=== PATIENT | female | born 1985 | race Caucasian/White ===

== ENCOUNTER → 2017-04-04 11:10 | Outpatient (CLI) | payer OTHER, SELFPAY ==
--- NOTE | 2017-04-04 11:10 | US_ITS ---
STUDY: SECOND AND THIRD TRIMESTER OBSTETRICAL ULTRASOUND REASON FOR EXAM: Female, 31 years old. Routine survey. LMP: November 15, 2016. TECHNIQUE: Transabdominal PRIOR ULTRASOUND: None. FINDINGS: There is a single intrauterine fetus. The fetus is in a breech presentation. There is demonstrated cardiac activity with a heart rate of 144 bpm. There is a normal amniotic fluid volume. The largest amniotic fluid pocket measures 4.1 cm x 3.7 cm. The amniotic fluid index (STACEY) is 12.5 cm. The placenta is posterior in location and is not low lying. There are Grade 0 placental changes. The cervix measures 5.6 cm in length. The bilateral adnexal regions are normal. BIOMETRY: BPD: 4.57 cm: 19 weeks, 6 days HC: 17.85 cm: 20 weeks, 3 days AC: 15.31 cm: 20 weeks, 4 days FL: 3.5 cm: 21 weeks, 1 days CI: 73% FL/BPD: 77% FL/HC: FL/AC: 23% HC/AC: 1.17 age by current US: 20 weeks, 4 days. PRASHANT by current US: August 18, 2017. Estimated weight: 370 grams, +/- 54 grams, 82 %. Age by LMP: 20 weeks, 0 days. PRASHANT by LMP: August 22, 2017. ANATOMY: Gender: Male Cranium: Normal lateral ventricles. Normal choroid plexus. Normal cerebellum. Normal cisterna magna. Normal face, nose and lips. Chest: Normal 4-chamber heart. Abdomen/Pelvis: Normal diaphragm. Normal stomach. Normal abdominal wall. Normal cord insertion. Normal 3 vessel cord. Normal kidneys. Normal bladder. Spine: Normal cervical spine. Normal thoracic spine. Normal lumbar spine. Normal sacrum. Extremities: Normal bilateral upper extremities. Normal bilateral lower extremities. US/OB Anatomy Scan IMPRESSION: Single live intrauterine gestation with a mean gestational age of 20 weeks and 4 days. Electronically Signed: Varinder Batista MD at 12:47 EST Tel [phone], Service support ,
== END ==
PROVIDERS: Family Provider Family Medicine; PCP Family Medicine; Visit Provider Obstetrics & Gynecology
DX: Z34.90 Encounter for supervision of normal pregnancy, unspecified, unspecified trimester (principal)
CPT/HCPCS: 76805

== ENCOUNTER → 2017-06-08 08:48 | Outpatient (CLI) | payer OTHER, SELFPAY ==
[2017-06-08 10:20] LABS: Absolute Lymphocyte Count 1.16 X10^3/ul (0.83-4.51); Absolute Neutrophil Count 4.2 X10^3/uL (2.0-7.7); Basophil# 0.01 X10^3/uL; Basophil% 0.2 % (0-1); Eosinophil# 0.08 X10^3/uL; Eosinophils% 1.4 % (0-5); Hematocrit 36.8 % (37-47); Hemoglobin 11.9 g/dl (12.0-15.0); Lymphocyte # 1.16 X10^3/ul (4.0); Lymphocyte % 20.4 % (19-41); Mean Corp Hgb Conc 32.3 g/gl (32-36); Mean Corpuscular Hgb 29.3 pg (27.0-32.0); Mean Corpuscular Volume 90.6 fL (81-99); Mean Platelet Vol. 9.9 fl (6.2-12.0); Monocyte# 0.26 X10^3/uL; Monocyte% 4.6 % (0-10); Neutrophil # 4.17 X10^3/uL (2.7-7.7); Neutrophil % 73.4 % (47-70); Platelet Count 208 K/mm3 (150-450); RBC Distribution Width CV 13.3 % (11.6-14.6); RBC Distribution Width SD 43.4 fl (35.1-43.9); Red Blood Count 4.06 M/mm3 (4.2-5.4); White Blood Count 5.7 K/mm3 (4.4-11.0)
[2017-06-08 10:22] LABS: POSITIVE COUNT NO; POSITIVE DIFFERENTIAL NO; POSITIVE MORPHOLOGY NO
[2017-06-08 11:06] LABS: Glucose Challenge Gest 1H 50g 94 mg/dL (70-140)
== END ==
PROVIDERS: Family Provider Family Medicine; PCP Family Medicine; Visit Provider Obstetrics & Gynecology
DX: Z34.81 Encounter for supervision of other normal pregnancy, first trimester (principal)
CPT/HCPCS: 36415; 82950; 85025

== ENCOUNTER → 2017-07-08 14:46 | Outpatient (CLI) | payer OTHER, SELFPAY ==
--- NOTE | 2017-07-08 15:00 | US_ITS ---
STUDY: SECOND AND THIRD TRIMESTER OBSTETRICAL ULTRASOUND - LIMITED REASON FOR EXAM: Female, 31 years old. , assessment LMP: November 15, 2016 PRIOR ULTRASOUND: April 04, 2017 TECHNIQUE: Transabdominal evaluation of the pelvis was performed using real-time ultrasound. FINDINGS: There is a single intrauterine fetus. The fetus is in a cephalic presentation. There is demonstrated cardiac activity with a heart rate of 158 bpm. There is a normal amniotic fluid volume. The largest amniotic fluid pocket measures 4.6 cm. The amniotic fluid index (STACEY) is 15.06 cm. The placenta is posterior in location and is not low lying. There are Grade 1 placental changes. The cervix measures 4.2 cm in length. BIOMETRY: BPD: 8.11 cm: 32 weeks, 5 days HC: 30.03 cm: 33 weeks, 3 days AC: 30.21 cm: 34 weeks, 2 days FL: 6.61 cm: 34 weeks, 1 days Age by LMP: 33 weeks, 4 days. PRASHANT by LMP: August 22, 2017. age by prior US: weeks, days. PRASHANT by prior US: August 18, 2017. age by current US: 33 weeks, 5 days. PRASHANT by current US: August 21, 2017. Estimated weight: 2299 grams, +/- 336 grams, 52 percentile. US/OB Limited With Biometrics IMPRESSION: There is a viable intrauterine with estimated gestational age of 33 weeks 5 days by the current ultrasound. Measurements are given above. Electronically Signed: Roya Best MD at 19:29 EDT Tel Direct: [phone], Service support ,
== END ==
PROVIDERS: Family Provider Family Medicine; PCP Family Medicine; Visit Provider Obstetrics & Gynecology
DX: O26.843 Uterine size-date discrepancy, third trimester (principal); Z3A.00 Weeks of gestation of pregnancy not specified
CPT/HCPCS: 76816

== ENCOUNTER → 2017-07-28 17:11 | Outpatient (CLI) | payer OTHER, SELFPAY ==
[2017-07-28 18:44] LABS: Group B Strep DNA By PCR Negative (Negative); Internal Control PASS; Probe Check PASS; Specimen Processing Control PASS
== END ==
PROVIDERS: Family Provider Family Medicine; PCP Family Medicine; Visit Provider Obstetrics & Gynecology
DX: Z34.81 Encounter for supervision of other normal pregnancy, first trimester (principal)
CPT/HCPCS: 87081; 87653

== ENCOUNTER 2017-08-19 18:50 | Inpatient (IN) | payer OTHER, SELFPAY ==
[2017-08-19 18:46] VITALS: BMI 40.0
[2017-08-19 19:55] LABS: Hematocrit 38.6 % (37-47); Hemoglobin 12.7 g/dl (12.0-15.0); Mean Corp Hgb Conc 32.9 g/gl (32-36); Mean Corpuscular Volume 88.1 fL (81-99); Mean Platelet Vol. 10.4 fl (6.2-12.0); Platelet Count 174 K/mm3 (150-450); RBC Distribution Width CV 13.7 % (11.6-14.6); RBC Distribution Width SD 44.5 fl (35.1-43.9); Red Blood Count 4.38 M/mm3 (4.2-5.4); White Blood Count 6.3 K/mm3 (4.4-11.0)
[2017-08-19 19:57] LABS: Scan Indicated on CBC? Y/N NO
[2017-08-19 20:04] LABS: International Normalized Ratio 0.9; Prothrombin Time (Protime)PT. 12.3 SECONDS (11.7-14.9)
[2017-08-19 20:20] LABS: AST(SGOT) 14 U/L (15-37); Alanine Aminotransfer ALT/SGPT 18 U/L (13-56); Creatinine, Serum 0.61 mg/dL (0.55-1.02); EST Glomerular Filtration Rate 122 mL/min (>60); Est Glom Filt Rate - Afr Amer 148 mL/min (>60); Estimated Creatinine Clearance 140.93 ml/min
[2017-08-19] MEDS: Oxytocin 30 units/NS 500 ml 30 UNITS/500 ML IV.SOLN IV (21:12)
[2017-08-19 21:30] LABS: Protein, Urine (Random) 8.4 mg/dL (<11.9); Protein:Creat Ratio 138 mg/g CRE (0-200)
[2017-08-19] MEDS: Lactated Ringers 1,000 ML 50 ML IV (21:30)
[2017-08-19] MEDS: fentaNYL-bupivacaine (epidural) 100 ML BAG EPIDURAL (21:53)
--- NOTE | 2017-08-19 22:22 | HP.PCM_ITS ---
- Problem List (1) Gestational hypertension affecting second Status: Acute (2) Supervision of normal Status: Acute Qualifiers: Comment: PRR PRASHANT 08/22/17 boy Ray PC Tip Saran History Date of Admission: 08/19/17 Final PRASHANT: 08/21/17 Gestational age: 39 Weeks and 5 Days History of this : This is a 31 year-old, G2 P 1, at 39 weeks gestational age 5 days presetns with elevated bps and 4 cm dilated. she has been having regular ctx with no vb or lof Allergies cucumber Allergy (Severe, Verified 08/19/17 20:32) Shortness of breath melon Allergy (Severe, Verified 08/19/17 20:32) Shortness of breath Home Medications: Home Medications Vits [Prenatabs FA] 1 tab PO DAILY 03/13/15 Smoking Status: Former smoker Alcohol: None Number of Fetus(es): 1 Heart Tracin moderate variability reactive no decels TOCO Analysis: q2-5 History Past Pregnancies: Pregancy History 2 Elective abortions Hx Para 1 Spontaneous abortions Hx # Term Pregnancies Ectopic pregnancies Hx # Pregnancies Multiple births # of living children Past Pregnancies Del. Date Name GA/Weeks Outcome Route Bth Weight Gen Labor Lgth Anesthesia Del Locatn Provider FOB Unknown 2015 Tip 40 live - full term 8lbs 6oz Male Saffell SYLVIE PRASHANT Calculator Estimated Delivery Date 08/22/17 Based on Ultrasound Date 01/21/17 Current WG 39w 4d Number 1 Labs: Mom's Labs & Results 08/19/17 08/19/17 08/19/17 19:40 19:40 19:40 WBC 6.3 RBC 4.38 Hgb 12.7 Hct 38.6 MCV 88.1 MCH 29.0 MCHC 32.9 RDW 13.7 RDW Differential 44.5 H Plt Count 174 MPV 10.4 PT 12.3 INR 0.9 APTT 24.0 L Creatinine Estim Creat Clear Calc Est GFR (MDRD) Af Amer Est GFR (MDRD) Non-Af Uric Acid AST ALT U Random Total Protein Urine Creatinine Protein/Creatinin Ratio Blood Type A POSITIVE Antibody Screen NEGATIVE 08/19/17 08/19/17 19:40 20:22 WBC RBC Hgb Hct MCV MCH MCHC RDW RDW Differential Plt Count MPV PT INR APTT Creatinine 0.61 Estim Creat Clear Calc 140.93 Est GFR (MDRD) Af Amer 148 Est GFR (MDRD) Non-Af 122 Uric Acid 4.0 AST 14 L ALT 18 U Random Total Protein 8.4 Urine Creatinine 61.00 Protein/Creatinin Ratio 138 Blood Type Antibody Screen Course Did the patient receive Yes care? Labs Blood Type: A RH: POSITIVE RPR/VDRL/Syphilis Nonreactive Rubella status Immune HbSAg Negative Date Done: 03/14/17 Chlamydia Negative Gonorrhea Negative HIV/AIDS Non-Reactive Group B Strep: Negative Social History Marital Status: Alleged father Saran Hx Smoking Yes Smoking Status Former smoker Expected Infant Delivery Method: Spontaneous Vaginal Describe any other labor & delivery plans:: Expected Delivery Route/Plan. . Specific Issue/Plans. Sequential screen, flu vaccine given, MC given. tdap given yes. larc form signed yes. labor support person: saran. pain management: epidural. cut cord/dad catch: yes. : yes. control planned: considering IUD. special requests: [] Review of Systems Constitutional: Denies: Fever, Malaise Eyes: Denies: Blurred vision, Vision Change HEENT: Denies: Head Aches, Visual Changes Cardiovascular: Denies: Chest Pain, Palpitations Respiratory: Denies: Cough, Shortness of Breath, Wheezing Gastrointestinal: Reports: Abdominal Pain. Denies: Diarrhea, Nausea, Vomiting Genitourinary: Denies: Dysuria, Hematuria Gynecological: Reports: Vaginal discharge Musculoskeletal: Denies: Joint Pain, Muscle pain Skin: Denies: Lesions, Rash Neurological: Denies: Blurred vision, Focal weakness, Headaches Psychiatric: Denies: Anxiety, Depression Endocrine: Denies: Heat/ Cold Intolerance Hematologic/ Lymphatic: Denies: Easy Bruising, Easy Bleeding Physical Exam General: Alert, Cooperative, No apparent distress HEENT: Atraumatic, Normocephalic. Negative for: Thyromegaly, Lymphadenopathy Cardiovascular: Regular rate Lungs: Normal air movement Abdomen: Soft, Non Tender, Gravid Neurological: Deep Tendon Reflexes 2+/4 and Symmetrical, Neuro grossly intact. Negative for: Clonus [employer]: Normal external genitalia. Negative for: Vulvar lesions Estimated gestational size: Appropriate for gestational size Presentation: Cephalic Cervix Dilation (cm): 4 Station: -2 Effacement (%): 60 Assessment/Plan All Active Problems (Last Reviewed 08/19/17 @ 13:11 by Alpa Acosta) Gestational hypertension affecting second (Acute) screening encounter (Acute) Supervision of normal (Acute) RYLIE I (cervical intraepithelial neoplasia I) (Acute) This is a 31 year-old, , at 39 weeks gestational age with GHTN plan IOL pitocin, arom. gbs neg. epi PRN
[2017-08-20] MEDS: Ondansetron 4 MG/2 ML Vial IV (01:14)
--- NOTE | 2017-08-20 02:00 | PLAC_PTH ---
PATIENT: SHE AGUILAR LOC: [facility] U#:[id number] AGE/SX: 31/F ROOM: WP016 RE08/19/[address]: Dr. Lynn Bowen MD : 1985 BED: 1 DIS: 08/21/2017 SPEC #: [id number] RECD: 08/20/17 05:41 STATUS: [place]UM[place] REBuster #: [id number] MACEY: 08/20/17 02:[address]: Lynn Bowen DEPT: SURGICAL PATHOLOGY RECD BY: Christian Benson ENTERED: 08/22/17 07:46 SP TYPE: PLACENTA OTHR DR: Dr. Estiven Tinajero MD Tissues: Placenta, NOS Procedures: Surgery Specimen Level V HEADER OPERATION: Vaginal delivery PRE-OP DIAGNOSIS: White plaques at cord insertion TISSUE SUBMITTED: Placenta MICROSCOPIC DIAGNOSIS Placenta: Placental disc - third trimester placenta (726 gm). - Focal areas of intraparenchymal hemorrhage x2 (each measuring 2.5 cm in greatest dimension). - surface, fibrin plaque, adjacent to the insertion of umbilical cord. - Focal chronic villitis of unknown etiology. Membranes - no pathologic diagnosis. Umbilical cord - three blood vessels and no pathologic diagnosis. SJ:edward 08/23/17 MICROSCOPIC DESCRIPTION Slides are reviewed. GROSS DESCRIPTION SPECIMEN: PLACENTA / CLINICAL INFORMATION: A. Weight: 4.034 kg B. Gestational Age: 39 weeks C. Sex: male PLACENTAL WEIGHT (POST FIXATION): 726 gm PLACENTAL DIMENSIONS: 18 x 18 x 4 cm PLACENTAL SHAPE: Usual ovoid PLACENTAL WEIGHT FOR GESTATIONAL AGE: >99th percentile MEMBRANES - Present A. Insertion: Marginal B. Site of rupture from edge: 4 cm from edge of placental disc C. Color of membrane: Reynolds-morales D. Abnormalities: None UMBILICAL CORD - Present A. Color: Reynolds-morales B. Insertion: Paracentral C. Length: 25 cm D. Diameter: Up to 1.5 cm E. Number of vessels: Three F. Abnormalities: None PLACENTAL DISC - Present A. Color of surface: Reynolds-morales B. surface abnormalities: The shows plaque adjacent to the insertion of the umbilical cord. C. Maternal cotyledons: Intact with minimal tears D. Attached retro placental clot: No clot E. Cut surface: Dark red and spongy F. Lesions: Sections reveal two reynolds, indurated, hemorrhagic areas each measuring 2.5 cm in greatest dimension. One of the hemorrhagic areas is underneath the placental plaque on the surface. G. Separate clot: Absent SECTIONS SUBMITTED: 1. Membrane roll 2. Cord, maternal end, plaque on surface 3. Cord, end 4. Placental disc, and maternal surfaces, lesion 5. Placental disc, and maternal surfaces, lesion 6. Placental disc, and maternal surfaces DAVID:edward 08/22/17 TC:5 CPT: 66786
[2017-08-20] MEDS: Oxytocin 30 units/NS 500 ml 30 UNITS/500 ML IV.SOLN 167 UNITS IV (02:11)
--- NOTE | 2017-08-20 02:21 | PCM.OB.VAG ---
- Problem List (1) Gestational hypertension affecting second Status: Acute (2) Supervision of normal Status: Acute Qualifiers: Comment: PRR PRASHANT 08/22/17 boy Ray Whelan Tomasz Vaginal Delivery Maternal Presentation: Medically Indicated Induction iol ghtn Method of Induction: Pitocin Medical Reason for Induction: Gestational Hypertension Amniotic Membrane Rupture Type: Artificial Amniotic Fluid Description: Clear Final PRASHANT: 08/21/17 Gestational age: 39 Weeks and 6 Days Date of Procedure: 08/20/17 Pre-Operative Diagnosis: iol ghtn Post-Operative Diagnosis: same Surgery/ Procedure Performed: Spontaneous Vaginal Delivery Type of Anesthesia: Epidural Description of Procedure: Patient began pushing and delivered the head in the ASTRID presentation. The head was delivered atraumatically. The shoulders were noted to be broad but the anterior and posterior shoulders delivered without complication followed by the rest of the infant and the was placed on the maternal abdomen. Delayed cord clamping was employed for approximately 60 seconds. Cord was clamped and cut and gentle traction was applied to the cord and the placenta delivered spontaneously immediately following it was noted to be intact with three-vessel cord. The perineum and vagina were inspected and noted to have no laceration. EBL was 400 cc. Patient and tolerated delivery well. Presentation: ASTRID Placental Delivery Description: Spontaneous Placenta Disposition: [facility] Cord Vessel Description: 3 Vessels Cord Entanglement: None Estimated Blood Loss: 400 A gender: Male (1 minute): 8 (5 minute): 8 Episiotomy Description: None Laceration: None Medications given after delivery: IV Pitocin Complications: None
[2017-08-20] MEDS: Oxytocin 30 units/NS 500 ml 30 UNITS/500 ML IV.SOLN 334 UNITS IV (02:41)
[2017-08-20] MEDS: 0.9% Saline Lock 10 ML Syringe IV (03:49)
[2017-08-20] MEDS: Naproxen 250 MG Tablet PO ×2 (06:55→15:47)
[2017-08-20] MEDS: Prenatal Vits Tablet 1 TABLET PO (09:31)
[2017-08-20 09:40] VITALS: BP 134/77; PULSE 87; RESP 16; TEMP 36.7; O2SAT 96
[2017-08-20 13:07] VITALS: BP 132/74; PULSE 81; RESP 16; TEMP 36.6; O2SAT 96
[2017-08-20 16:22] VITALS: BP 131/68; PULSE 85; RESP 16; TEMP 36.5; O2SAT 98
[2017-08-20] MEDS: Acetaminophen 500 MG Tablet 1000 MG PO (20:09)
[2017-08-20 20:15] VITALS: BP 132/65; PULSE 91; RESP 18; TEMP 36.4; O2SAT 96
[2017-08-21 00:55] VITALS: BP 134/91; PULSE 71; RESP 16; TEMP 36.3; O2SAT 97
[2017-08-21] MEDS: Naproxen 250 MG Tablet PO (07:26)
[2017-08-21 07:40] VITALS: BP 122/81; PULSE 74; RESP 18; TEMP 36.3
--- NOTE | 2017-08-21 08:45 | PCM.PN.OB ---
Patient Problems: Active and Suspected Problems (Last Reviewed 08/19/17 @ 13:11 by Alpa Acosta) Gestational hypertension affecting second (Acute) Subjective: doing well no complaints - Physical Exam General: Alert, Oriented x3 Vital Signs Temp Pulse Resp BP Pulse Ox 97.4 F L 71 16 134/91 H 97 08/21/17 00:55 08/21/17 00:55 08/21/17 00:55 08/21/17 00:55 08/21/17 00:55 Oxygen Delivery Method Room Air Weight: 271 lb Body Mass Index (BMI) 40.0 Intake and Output for Last 24 Hours 08/19/17 08/20/17 08/21/17 23:59 23:59 23:59 Output Total 1400 / 1400 Balance -1400 / -1400 Medical Necessity - Tobacco Use Smoking Status: Former smoker Assessment/Plan All Active Problems (Last Reviewed 08/19/17 @ 13:11 by Alpa Acosta) Gestational hypertension affecting second (Acute) screening encounter (Acute) Supervision of normal (Acute) RYLIE I (cervical intraepithelial neoplasia I) (Acute) s/p routine care edwin morales
--- NOTE | 2017-08-21 08:47 | DCINST_ITS ---
Discharge Diet: No Restrictions Discharge Activity: Return to Normal Activity, May not drive while taking narcotic pain medications., May Shower May resume sexual activity in: 4-6 weeks Call your doctor if your incision/area has: Continuous Slow Oozing, Sudden Increased Bleeding, Increased Pain/ Swelling, Increased Redness, Foul Smelling Discharge Additional Instructions: If you experience any of the following, contact your healthcare provider. * Bleeding that soaks a pad every hour for 2 hours * Fever 100.4 or higher * Unrelieved incision or abdominal pain * Swelling, redness, discharge or bleeding from your incision or episiotomy site * Your incision begins to separate * Problems urinating (including inability to urinate or burning while urinating) . * Visual changes * Severe headache * Flu-like symptoms * Pain or redness in one of both of your breasts * Pain, warmth, tenderness or swelling in your legs, especially the calf area * Frequent nausea and vomiting * Symptoms of depression or anxiety If you experience any of the following, call 911 or go to the nearest Emergency Room. * Chest pain * Problems breathing * Seizure activity * Partial or complete paralysis of a body part, slurred speech, weakness or drooping of the face, or a sudden inability to walk or hold your balance Allergies/Adverse Reactions: Allergies cucumber Allergy (Severe, Verified 08/19/17 20:32) Shortness of breath melon Allergy (Severe, Verified 08/19/17 20:32) Shortness of breath Medications to take at Discharge Vits [Prenatabs FA] 1 tab PO DAILY 03/13/15 Naproxen [Naprosyn] 250 - 500 mg PO Q8H PRN PRN #30 tab 08/21/17 The following prescriptions were given: Naproxen [Naprosyn] 250 - 500 mg PO Q8H PRN PRN #30 tab PRN Reason: MILD PAIN Please Follow Up With: Lynn Bowen MD - [phone] When: Call to make an appointment with your doctor in 6 weeks. If you had elevated Blood pressure or 4th degree laceration you will need to be seen in 2 weeks. Primary Care Physician: Estiven Tinajero MD [Primary Care Provider] -
[2017-08-22 10:53] LABS: Pathology Specimen OB SEE PATHOLOGY REPORT
== END 2017-08-21 11:15 | disposition home or self-care (01) | DRG 775 ==
LOC: WPOUT 19:01
PROVIDERS: Admitting Provider Obstetrics & Gynecology; Family Provider Family Medicine; PCP Family Medicine; Visit Provider Obstetrics & Gynecology
DX: O13.4 Gestational [pregnancy-induced] hypertension without significant proteinuria, complicating childbirth (principal); Z68.41 Body mass index [BMI] 40.0-44.9, adult; O99.214 Obesity complicating childbirth; Z3A.39 39 weeks gestation of pregnancy; Z37.0 Single live birth
CPT/HCPCS: 59025; 59050; 82565; 82570; 84156; 84450; 84460; 84550; 85027; 85610; 85730; 86850; 86900; 88307; 99218; J7120; A4216; G0378; J2405

== ENCOUNTER 2017-08-24 14:00 | Outpatient (CLI) | payer OTHER, SELFPAY | END 2017-08-24 15:15 | disposition home or self-care (01) | LOC: WPOUT 14:14 → WP 14:14 | PROVIDERS: Family Provider Family Medicine; PCP Family Medicine; Visit Provider Obstetrics & Gynecology | DX: O92.79 Other disorders of lactation (principal) ==

== ENCOUNTER 2017-09-12 09:30 | Outpatient (CLI) | payer OTHER, SELFPAY | END 2017-09-12 11:10 | disposition home or self-care (01) | LOC: WPOUT 09:34 → WP 09:35 | PROVIDERS: Family Provider Family Medicine; PCP Family Medicine; Visit Provider Obstetrics & Gynecology | DX: O92.79 Other disorders of lactation (principal) | CPT/HCPCS: 96152 ==

== ENCOUNTER 2017-09-29 10:46 | Outpatient (CLI) | payer OTHER, SELFPAY | END 2017-09-29 11:35 | disposition home or self-care (01) | LOC: WPOUT 11:06 → WP 11:07 | PROVIDERS: Family Provider Family Medicine; PCP Family Medicine; Visit Provider Obstetrics & Gynecology | DX: O92.79 Other disorders of lactation (principal) | CPT/HCPCS: 96152 ==

== ENCOUNTER → 2017-09-29 19:11 | Outpatient (CLI) | payer OTHER, SELFPAY ==
[2017-10-05 08:17] LABS: HPV APTIMA, High Risk Negative (Negative)
== END ==
PROVIDERS: Family Provider Family Medicine; PCP Family Medicine; Visit Provider Obstetrics & Gynecology
DX: Z12.4 Encounter for screening for malignant neoplasm of cervix (principal)
CPT/HCPCS: 88175; G0145

== ENCOUNTER 2017-10-20 15:24 | Outpatient (CLI) | payer OTHER, SELFPAY | END 2017-10-20 16:24 | disposition home or self-care (01) | LOC: WPOUT 15:25 → WP 15:26 | PROVIDERS: Family Provider Family Medicine; PCP Family Medicine; Visit Provider Obstetrics & Gynecology | DX: O92.79 Other disorders of lactation (principal) | CPT/HCPCS: 96152 ==

== ENCOUNTER → 2019-10-15 13:07 | Outpatient (CLI) | payer OTHER, SELFPAY ==
[2019-03-12 09:53] VITALS: BMI 33.3
[2019-10-15 18:34] LABS: T4 Free Direct 0.86 ng/dL (0.76-1.46); Thyroid Stim Hormone (TSH) 2.32 uIU/mL (0.358-3.74)
== END ==
PROVIDERS: PCP Family Medicine; Referring Provider Family Medicine; Visit Provider Family Medicine
DX: L65.9 Nonscarring hair loss, unspecified (principal)
CPT/HCPCS: 36415; 84439; 84443

== ENCOUNTER → 2020-04-25 | Outpatient (CLI) | payer OTHER, SELFPAY ==
[2020-04-25 08:21] VITALS: BMI 31.7
[2020-04-25 14:13] LABS: Protein, Urine (Random) 6.5 mg/dL (<11.9); Protein:Creat Ratio 174 mg/g CRE (0-200)
[2020-04-25 14:18] LABS: Amphetamine Urine VISTA NEGATIVE (<1000 ng/mL); Barbiturate Urine VISTA NEGATIVE (< 200 ng/mL); Benzodiazepine Urine VISTA NEGATIVE (< 200 ng/mL); Cocaine Urine VISTA NEGATIVE (< 300 ng/mL); Ecstacy Urine VISTA NEGATIVE (< 500 ng/mL); Methadone Urine VISTA NEGATIVE (< 300 ng/mL); PCP Urine VISTA NEGATIVE (< 25 ng/mL); THC Urine VISTA NEGATIVE (< 50 ng/mL); Vista UDS pH Range 7
[2020-04-27 14:07] LABS: Chlamydia By Nucleic Acid AMP Negative (Negative)
[2020-04-27 15:06] LABS: Gonococcus By Nucleic Acid AMP Negative (Negative)
== END | disposition home or self-care (01) ==
LOC: LABSPEC 12:58
PROVIDERS: PCP Family Medicine; Referring Provider Obstetrics & Gynecology; Visit Provider Obstetrics & Gynecology
DX: Z34.90 Encounter for supervision of normal pregnancy, unspecified, unspecified trimester (principal)
CPT/HCPCS: 80307; 82570; 84156; 87086; 87088; 87491; 87591

== ENCOUNTER → 2020-05-02 08:02 | Outpatient (CLI) | payer OTHER, SELFPAY ==
[2020-04-25 08:21] VITALS: BMI 31.7
[2020-05-02 09:11] LABS: Absolute Lymphocyte Count 0.79 X10^3/uL (0.83-4.51); Absolute Neutrophil Count 3.8 X10^3/uL (2.0-7.7); Basophil# 0.01 X10^3/uL; Basophil% 0.2 % (0-1); Eosinophil# 0.03 X10^3/uL; Eosinophils% 0.6 % (0-5); Hematocrit 40.5 % (37-47); Lymphocyte # 0.79 X10^3/ul (4.0); Lymphocyte % 16.4 % (19-41); Mean Corp Hgb Conc 32.1 g/dL (32-36); Mean Corpuscular Hgb 29.6 pg (27.0-32.0); Mean Corpuscular Volume 92.3 fL (81-99); Mean Platelet Vol. 9.7 fl (6.2-12.0); Monocyte# 0.17 X10^3/uL; Monocyte% 3.5 % (0-10); NRBC Flagged by Analyzer 0 % (0-5); Neutrophil # 3.81 X10^3/uL (2.7-7.7); Neutrophil % 79.1 % (47-70); Platelet Count 215 K/mm3 (150-450); RBC Distribution Width CV 12.7 % (11.6-14.6); RBC Distribution Width SD 42.6 fl (35.1-43.9); Red Blood Count 4.39 M/mm3 (4.2-5.4); White Blood Count 4.8 K/mm3 (4.4-11.0)
[2020-05-02 09:48] LABS: ALB/GLOB Ratio 0.9 RATIO (0.9-2.4); AST(SGOT) 10 U/L (15-37); Alanine Aminotransfer ALT/SGPT 20 U/L (13-56); Albumin, Serum 3.5 g/dL (3.2-5.0); Alkaline Phosphatase 53 U/L (45-117); Anion Gap 6 (5-15); BUN 8 mg/dL (7-18); BUN/Creat Ratio 14.4 RATIO (10-20); Calcium,Total 9.3 mg/dL (8.5-10.1); Chloride 106 mmol/L (98-107); Creatinine, Serum 0.56 mg/dL (0.55-1.02); EST Glomerular Filtration Rate 133 mL/min (>60); Est Glom Filt Rate - Afr Amer 161 mL/min (>60); Globulin 3.8 g/dL (2.2-4.2); Glucose 99 mg/dL (74-106); Glucose Challenge Gest 1H 50g 99 mg/dL (70-140); Potassium 3.4 mmol/L (3.5-5.1); Protein, Total 7.3 g/dL (6.4-8.2); Sodium Level 139 mmol/L (136-145)
[2020-05-02 10:28] LABS: HIV - WCH Non-Reactive (Nonreactive); Hepatitis B Surface Antigen Non-Reactive (Nonreactive); Hepatitis C Antibody Non-Reactive (Nonreactive); Rubella IgG Reactive (Nonreactive); Syphilis Antibodies Non-reactive
== END ==
PROVIDERS: PCP Family Medicine; Referring Provider Obstetrics & Gynecology; Visit Provider Obstetrics & Gynecology
DX: Z34.90 Encounter for supervision of normal pregnancy, unspecified, unspecified trimester (principal)
CPT/HCPCS: 36415; 80053; 82950; 85025; 86703; 86762; 86803; 86850; 86900; 86901; 87340

== ENCOUNTER → 2020-05-19 08:51 | Outpatient (CLI) | payer OTHER, SELFPAY ==
[2020-05-19 08:10] VITALS: BMI 31.7
[2020-05-19 09:19] LABS: Absolute Lymphocyte Count 1.06 X10^3/uL (0.83-4.51); Absolute Neutrophil Count 3.2 X10^3/uL (2.0-7.7); Basophil# 0.03 X10^3/uL; Basophil% 0.7 % (0-1); Eosinophil# 0.05 X10^3/uL; Eosinophils% 1.1 % (0-5); Hematocrit 40.2 % (37-47); Hemoglobin 13.3 g/dL (12.0-15.0); Lymphocyte # 1.06 X10^3/ul (4.0); Lymphocyte % 23.1 % (19-41); Mean Corp Hgb Conc 33.1 g/dL (32-36); Mean Corpuscular Hgb 30.3 pg (27.0-32.0); Mean Corpuscular Volume 91.6 fL (81-99); Mean Platelet Vol. 9.3 fl (6.2-12.0); Monocyte# 0.25 X10^3/uL; Monocyte% 5.4 % (0-10); NRBC Flagged by Analyzer 0 % (0-5); Neutrophil # 3.19 X10^3/uL (2.7-7.7); Neutrophil % 69.5 % (47-70); Platelet Count 202 K/mm3 (150-450); RBC Distribution Width CV 12.8 % (11.6-14.6); RBC Distribution Width SD 42.3 fl (35.1-43.9); Red Blood Count 4.39 M/mm3 (4.2-5.4); White Blood Count 4.6 K/mm3 (4.4-11.0)
[2020-05-19 09:48] LABS: ALB/GLOB Ratio 0.9 RATIO (0.9-2.4); AST(SGOT) 11 U/L (15-37); Alanine Aminotransfer ALT/SGPT 15 U/L (13-56); Albumin, Serum 3.5 g/dL (3.2-5.0); Alkaline Phosphatase 51 U/L (45-117); Anion Gap 5 (5-15); BUN 8 mg/dL (7-18); BUN/Creat Ratio 14.3 RATIO (10-20); Chloride 104 mmol/L (98-107); Creatinine, Serum 0.56 mg/dL (0.55-1.02); EST Glomerular Filtration Rate 133 mL/min (>60); Est Glom Filt Rate - Afr Amer 160 mL/min (>60); Globulin 3.7 g/dL (2.2-4.2); Glucose 77 mg/dL (74-106); Potassium 3.7 mmol/L (3.5-5.1); Protein, Total 7.2 g/dL (6.4-8.2); Sodium Level 136 mmol/L (136-145)
[2020-05-19 11:18] LABS: Protein, Urine (Random) 20.5 mg/dL (<11.9); Protein:Creat Ratio 259 mg/g CRE (0-200)
== END ==
PROVIDERS: PCP Family Medicine; Referring Provider Obstetrics & Gynecology; Visit Provider Obstetrics & Gynecology
DX: O16.9 Unspecified maternal hypertension, unspecified trimester (principal); Z3A.00 Weeks of gestation of pregnancy not specified
CPT/HCPCS: 36415; 80053; 82570; 84156; 85025

== ENCOUNTER → 2020-08-26 07:41 | Outpatient (CLI) | payer OTHER, SELFPAY ==
[2020-08-25 08:46] VITALS: BMI 35.4
[2020-08-26 08:06] LABS: Absolute Lymphocyte Count 1.07 X10^3/uL (0.83-4.51); Absolute Neutrophil Count 4.1 X10^3/uL (2.0-7.7); Basophil# 0.01 X10^3/uL; Basophil% 0.2 % (0-1); Eosinophil# 0.05 X10^3/uL; Eosinophils% 0.9 % (0-5); Hematocrit 39.5 % (37-47); Hemoglobin 12.6 g/dL (12.0-15.0); Lymphocyte # 1.07 X10^3/ul (0.83-4.51); Lymphocyte % 19.9 % (19-41); Mean Corp Hgb Conc 31.9 g/dL (32-36); Mean Corpuscular Hgb 29.3 pg (27.0-32.0); Mean Corpuscular Volume 91.9 fL (81-99); Mean Platelet Vol. 9.5 fl (6.2-12.0); Monocyte# 0.19 X10^3/uL; Monocyte% 3.5 % (0-10); NRBC Flagged by Analyzer 0 % (0-5); Neutrophil # 4.06 X10^3/uL (2.7-7.7); Neutrophil % 75.3 % (47-70); Platelet Count 222 K/mm3 (150-450); RBC Distribution Width CV 12.8 % (11.6-14.6); RBC Distribution Width SD 42.2 fl (35.1-43.9); White Blood Count 5.4 K/mm3 (4.4-11.0)
[2020-08-26 08:29] LABS: Glucose Challenge Gest 1H 50g 117 mg/dL (70-140)
== END ==
PROVIDERS: PCP Family Medicine; Referring Provider Obstetrics & Gynecology; Visit Provider Obstetrics & Gynecology
DX: Z34.91 Encounter for supervision of normal pregnancy, unspecified, first trimester (principal); Z3A.13 13 weeks gestation of pregnancy; Z13.1 Encounter for screening for diabetes mellitus
CPT/HCPCS: 36415; 82950; 85025

== ENCOUNTER → 2020-09-04 13:45 | Outpatient (CLI) | payer OTHER, SELFPAY ==
[2020-08-25 08:46] VITALS: BMI 35.4
--- NOTE | 2020-09-04 13:45 | US_ITS ---
STUDY: SECOND AND THIRD TRIMESTER OBSTETRICAL ULTRASOUND - LIMITED REASON FOR EXAM: Female, 34 years old 28w Growth there LMP: 11/17/2019. PRIOR ULTRASOUND: None. TECHNIQUE: Transabdominal TECHNICAL QUALITY: Adequate. FINDINGS: There is a single intrauterine fetus. The fetus is in an transverse lie with the head on the maternal left side. There is demonstrated cardiac activity with a heart rate of 140 bpm. There is a normal amniotic fluid volume. The largest amniotic fluid pocket measures 4.8 cm. The amniotic fluid index (STACEY) is 12.4 cm. The placenta is posterior in location and is not low lying. There are Grade 1 placental changes. The cervix measures 3.8 cm in length. BIOMETRY: BPD: 6.8 cm: 27 weeks, 2 days HC: 26.1 cm: 20 weeks, 2 days AC: 24.2 cm: 28 weeks, 3 days FL: 5.3 cm: 28 weeks, 1 days Age by LMP: 28 weeks, 5 days. PRASHANT by LMP: 11/22/2020. age by current US: 28 weeks, 0 days. PRASHANT by current US: 11/27/2020. Estimated weight: 1198 grams, +/- 180 grams, 23 percentile. US/OB Limited With Biometrics IMPRESSION: Single live intrauterine gestation with a mean gestational age of 28 weeks. Electronically Signed: Varinder Batista MD at 15:04 EDT , Service support ,
== END ==
PROVIDERS: PCP Family Medicine; Referring Provider Obstetrics & Gynecology; Visit Provider Obstetrics & Gynecology
DX: O98.519 Other viral diseases complicating pregnancy, unspecified trimester (principal); U07.1 COVID-19; Z3A.00 Weeks of gestation of pregnancy not specified
CPT/HCPCS: 76816

== ENCOUNTER → 2020-09-29 07:52 | Outpatient (CLI) | payer OTHER, SELFPAY ==
[2020-08-25 08:46] VITALS: BMI 35.4
[2020-09-22 08:23] VITALS: BMI 36.4
--- NOTE | 2020-09-29 07:53 | US_ITS ---
STUDY: SECOND AND THIRD TRIMESTER OBSTETRICAL ULTRASOUND - LIMITED REASON FOR EXAM: Female, 35 years old 36w ultrasound LMP: 02/16/2020. PRIOR ULTRASOUND: Comparison is made with prior study of 09/04/2020. TECHNIQUE: Transabdominal TECHNICAL QUALITY: Adequate. FINDINGS: There is a single intrauterine fetus. The fetus is in a cephalic presentation. There is demonstrated cardiac activity with a heart rate of 138 bpm. There is a normal amniotic fluid volume. The largest amniotic fluid pocket measures 5.44 cm. The amniotic fluid index (STACEY) is 11.37 cm. The placenta is posterior in location and is not low lying. There are Grade 1 placental changes. The cervix measures 3.4 cm in length. BIOMETRY: BPD: 7.62 cm.: 30 weeks, 4 days HC: 28.58 cm: 31 weeks, 2 days AC: 28.21 cm: 32 weeks, 1 days FL: 6.32 cm: 32 weeks, 4 days Age by LMP: 32 weeks, 2 days. PRASHANT by LMP: 11/22/2020. age by prior US: 31 weeks, 4 days. PRASHANT by prior US: 11/27/2020. age by current US: 31 weeks, 3 days. PRASHANT by current US: 11/28/2020. Estimated weight: 1927 grams, +/- 289 grams, 37 percentile. US/OB Limited With Biometrics IMPRESSION: Single live uterine gestation with a mean gestational age of 31 weeks and 4 days. The measurements obtained today fall within the normal expected range. Electronically Signed: Varinder Batista MD at 20:14 EDT , Service support ,
== END ==
PROVIDERS: PCP Family Medicine; Referring Provider Obstetrics & Gynecology; Visit Provider Obstetrics & Gynecology
DX: O98.519 Other viral diseases complicating pregnancy, unspecified trimester (principal); U07.1 COVID-19; Z3A.36 36 weeks gestation of pregnancy
CPT/HCPCS: 76816

== ENCOUNTER → 2020-10-27 09:02 | Outpatient (CLI) | payer OTHER, SELFPAY | PROVIDERS: PCP Family Medicine; Visit Provider Obstetrics & Gynecology | DX: Z34.80 Encounter for supervision of other normal pregnancy, unspecified trimester (principal) | CPT/HCPCS: 87081 ==

== ENCOUNTER → 2020-10-28 07:49 | Outpatient (CLI) | payer OTHER, SELFPAY ==
[2020-08-25 08:46] VITALS: BMI 35.4
--- NOTE | 2020-10-28 07:50 | US_ITS ---
STUDY: SECOND AND THIRD TRIMESTER OBSTETRICAL ULTRASOUND - LIMITED REASON FOR EXAM: Female, 35 years old 32w ultrasound LMP: 02/16/2020. PRIOR ULTRASOUND: Comparison is made with prior examination dated 09/29/2020. TECHNIQUE: Transabdominal TECHNICAL QUALITY: Adequate. FINDINGS: There is a single intrauterine fetus. The fetus is in a cephalic presentation. There is demonstrated cardiac activity with a heart rate of 131 bpm. There is a normal amniotic fluid volume. The largest amniotic fluid pocket measures 4 cm x 2.1 cm. The amniotic fluid index (STACEY) is 13.8 cm. The placenta is posterior in location and is not low lying. There are Grade 1 placental changes. The cervix measures 4.9 cm in length. BIOMETRY: BPD: 8.56 cm: 34 weeks, 3 days HC: 31.8 cm: 35 weeks, 5 days AC: 32.54 cm: 36 weeks, 3 days FL: 7.01 cm: 35 weeks, 6 days Age by LMP: 36 weeks, 3 days. PRASHANT by LMP: 11/22/2020. age by prior US: 35 weeks, 4 days. PRASHANT by prior US: 11/28/2020. age by current US: 35 weeks, 3 days. PRASHANT by current US: 11/29/2020. Estimated weight: 2850 grams, +/- 427 grams, 44.3 percentile. US/OB Limited With Biometrics IMPRESSION: Single live intrauterine gestation with mean gestational age of 35 weeks and 4 days. Measurements obtained today fall within normal expected range. Electronically Signed: Varinder Batista MD at 14:08 EDT , Service support ,
== END ==
PROVIDERS: PCP Family Medicine; Referring Provider Obstetrics & Gynecology; Visit Provider Obstetrics & Gynecology
DX: O98.513 Other viral diseases complicating pregnancy, third trimester (principal); U07.1 COVID-19; Z3A.32 32 weeks gestation of pregnancy
CPT/HCPCS: 76816

== ENCOUNTER 2020-11-24 09:30 | Outpatient (CLI) | payer OTHER, SELFPAY ==
[2020-11-24] VITALS (9 sets, daily range): BP systolic 114–149; BP diastolic 72–78; PULSE 117–125; TEMP 36.1; BMI 39.1
[2020-11-24 10:09] LABS: Hematocrit 39.6 % (37-47); Mean Corp Hgb Conc 32.8 g/dL (32-36); Mean Corpuscular Hgb 29.3 pg (27.0-32.0); Mean Corpuscular Volume 89.4 fL (81-99); Mean Platelet Vol. 10.6 fl (6.2-12.0); Platelet Count 192 K/mm3 (150-450); RBC Distribution Width CV 13.2 % (11.6-14.6); RBC Distribution Width SD 43.3 fl (35.1-43.9); Red Blood Count 4.43 M/mm3 (4.2-5.4)
[2020-11-24 10:57] LABS: Protein, Urine (Random) 14.5 mg/dL (<11.9); Protein:Creat Ratio 169 mg/g CRE (0-200)
[2020-11-24 10:58] LABS: AST(SGOT) 14 U/L (15-37); Alanine Aminotransfer ALT/SGPT 17 U/L (13-56); Creatinine, Serum 0.56 mg/dL (0.55-1.02); EST Glomerular Filtration Rate 132 mL/min (>60); Est Glom Filt Rate - Afr Amer 160 mL/min (>60); Estimated Creatinine Clearance 147.93 ml/min
--- NOTE | 2020-11-25 15:53 | OB.TRI.PN_ITS ---
Progress Notes Date of Service: 11/24/20 Progress Note: Patient presents for triage evaluation secondary to elevated BP. BPs normal in triage. PreE labs normal. FHT: Moderate variability reactive no decelerations category I tracing [place]: No Contractions Assessment and plan: Reactive NST, reassuring maternal and status patient discharged to home to follow-up at next scheduled visit. See problem list details for additional plan information. Laboratory Studies: Laboratory Tests 11/24/20 11/24/20 11/24/20 Range/Units 10:25 10:25 09:55 WBC (4.4-11.0) K/mm3 RBC (4.2-5.4) M/mm3 Hgb (12.0-15.0) g/dL Hct (37-47) % MCV (81-99) fL MCH (27.0-32.0) pg MCHC (32-36) g/dL RDW Std Deviation (35.1-43.9) fl RDW Coeff of Andres (11.6-14.6) % Plt Count (150-450) K/mm3 MPV (6.2-12.0) fl Creatinine 0.56 Cancelled Estim Creat Clear Calc 147.93 Cancelled Est GFR (MDRD) Af Amer 160 Cancelled Est GFR (MDRD) Non-Af 132 Cancelled Uric Acid 5.0 Cancelled AST 14 L Cancelled ALT 17 Cancelled U Random Total Protein 14.5 H (<11.9) mg/dL Urine Creatinine 85.70 (NO RANGE EST.) mg/dL Protein/Creatinin Ratio 169 (0-200) mg/g CRE 11/24/20 Range/Units 09:55 WBC 6.0 (4.4-11.0) K/mm3 RBC 4.43 (4.2-5.4) M/mm3 Hgb 13.0 (12.0-15.0) g/dL Hct 39.6 (37-47) % MCV 89.4 (81-99) fL MCH 29.3 (27.0-32.0) pg MCHC 32.8 (32-36) g/dL RDW Std Deviation 43.3 (35.1-43.9) fl RDW Coeff of Andres 13.2 (11.6-14.6) % Plt Count 192 (150-450) K/mm3 MPV 10.6 (6.2-12.0) fl Creatinine Estim Creat Clear Calc Est GFR (MDRD) Af Amer Est GFR (MDRD) Non-Af Uric Acid AST ALT U Random Total Protein (<11.9) mg/dL Urine Creatinine (NO RANGE EST.) mg/dL Protein/Creatinin Ratio (0-200) mg/g CRE Charges/Coding Procedures Urinary/Genital [id number]-[id number]: [id number] non-stress test Interp
== END 2020-11-24 11:28 | disposition home or self-care (01) ==
LOC: WPOUT 09:34 → WP 09:35
PROVIDERS: PCP Family Medicine; Referring Provider Obstetrics & Gynecology; Visit Provider Obstetrics & Gynecology
DX: O26.899 Other specified pregnancy related conditions, unspecified trimester (principal); R03.0 Elevated blood-pressure reading, without diagnosis of hypertension; Z3A.00 Weeks of gestation of pregnancy not specified
CPT/HCPCS: 36415; 59025; 59050; 82565; 82570; 84156; 84450; 84460; 84550; 85027; 99218; G0378

== ENCOUNTER 2020-11-29 02:40 | Inpatient (IN) | payer OTHER, SELFPAY ==
[2020-11-29] VITALS (72 sets, daily range): BP systolic 64–136; BP diastolic 39–88; PULSE 72–121; RESP 16–18; TEMP 35.7–36.5; O2SAT 83–100; BMI 39.7
[2020-11-29] MEDS: Lactated Ringers 500 ML 999 ML IV ×2 (02:45→04:46)
[2020-11-29 03:00] LABS: Absolute Lymphocyte Count 1.85 X10^3/uL (0.83-4.51); Absolute Neutrophil Count 4.7 X10^3/uL (2.0-7.7); Basophil# 0.02 X10^3/uL; Basophil% 0.3 % (0-1); Eosinophil# 0.05 X10^3/uL; Eosinophils% 0.7 % (0-5); Hematocrit 41.4 % (37-47); Hemoglobin 13.6 g/dL (12.0-15.0); Lymphocyte # 1.85 X10^3/ul (0.83-4.51); Lymphocyte % 26.4 % (19-41); Mean Corp Hgb Conc 32.9 g/dL (32-36); Mean Corpuscular Hgb 29.1 pg (27.0-32.0); Mean Corpuscular Volume 88.5 fL (81-99); Mean Platelet Vol. 10.7 fl (6.2-12.0); Monocyte# 0.33 X10^3/uL; Monocyte% 4.7 % (0-10); NRBC Flagged by Analyzer 0 % (0-5); Neutrophil # 4.73 X10^3/uL (2.7-7.7); Neutrophil % 67.6 % (47-70); Platelet Count 196 K/mm3 (150-450); RBC Distribution Width CV 13.4 % (11.6-14.6); RBC Distribution Width SD 43.1 fl (35.1-43.9); Red Blood Count 4.68 M/mm3 (4.2-5.4)
[2020-11-29] MEDS: Lactated Ringers 1,000 ML 50 ML IV (03:17)
[2020-11-29] MEDS: fentaNYL-bupivacaine (epidural) 100 ML BAG EPIDURAL (04:19)
[2020-11-29] MEDS: ePHEDrine Sulfate 50 MG/ML Ampul 10 MG IV (04:49)
[2020-11-29] MEDS: Lactated Ringers 1,000 ML 200 ML IV (04:56)
--- NOTE | 2020-11-29 05:26 | HP.PCM.OB_ITS ---
HPI - General General Date of Admission: 11/29/20 HPI Narrative SHE AGUILAR, is a 35 F G3, P2 at 41 weeks gestation who presents in active labor Maternal Data Information PRASHANT Calculator Estimated Delivery Date Method Current WG Current Estimate 11/22/20 LMP (Certain) 41w 0d Other Estimates 11/26/20 Ultrasound #1 40w 3d PFSH PFSH Medical History (Updated 11/29/20 @ 05:[address] Yarely Norris MD) Gestational HTN Gestational hypertension H/O abnormal cervical Papanicolaou smear Home Medications multivitamin no.47-iron fum 27 mg-folate no.1 1 mg-dha 300 mg capsule cap PO DAILY 04/15/20 [History Last Taken 11/28/20] aspirin DAILY 11/24/20 [History Last Taken 11/23/20 21:00] Allergy/AdvReac Type Severity Reaction Status Date / Time cucumber Allergy Severe Shortness Verified 11/29/20 00:36 of breath melon Allergy Severe Shortness Verified 11/29/20 00:36 of breath avocado Allergy Food Verified 11/29/20 00:37 Allergy banana Allergy Food Verified 11/29/20 00:37 Allergy Surgical History (Updated 11/29/20 @ 02:55 by Latonia Rodríguez) No significant past surgical history [place] teeth extracted Social History adopted: No household members: family number of children: 2 current occupational status: employed Smoking Status: Former smoker second hand exposure: No alcohol intake: never substance use type: does not use caffeine: Yes what type of physical activity do you participate in: walking seatbelt use: always do you feel safe at home: Yes additional social history: Spouse Tomasz caldwell History 3 Elective abortions Hx Para 2 Spontaneous abortions Hx # Term Pregnancies Ectopic pregnancies Hx # Pregnancies Multiple births # of living children 2 Past Pregnancies Del. Date Name GA/Weeks Outcome Route Bth Weight Infant Gen Labor Lgth Anesthesia Del Locatn Provider FOB 03/14/15 Tip 40 live - full term 8lbs 6oz Male 26 h ours epidural Zara SYLVIE 08/19/17 Ray 39 live - full term 9lbs Male 9hours epid ural [facility]LVIE Delivery Date: 03/14/15 IoL GHTN; 1st degree laceration Netta Quiroz Delivery Date: 08/19/17 GHTN Netta Quiroz Visit Details Expected Delivery Route/Plan Labor Preferences- CB/BF classes: [] labor support person: Tomasz labor intervention preferences: open pain management options preferred: epidural cut cord/dad catch: yes : yes PP control planned: vasectomy planned discussed possible routes of delivery and associated risks: [] special requests: [] Plans COVID: Vaccinated flu vaccine: yes tdap vaccine: given rhogam: na LARC form signed: yes Problem list reviewed and updated with the most current plan of care details and appropriate orders placed. Relevant counseling for the gestational age provided. Continue routine care and follow up unless otherwise noted in visit notes/problem list details OB Flowsheet Initial Weight: 215 lb Date -?-?-?-?-?-?-?-?-?-?-?-?- EGA Weight BP Urine Prot -?-?-?-?-?-?-?-?-?-?-?-?- Glucose FHR FuHt Pres Dilation -?-?-?-?-?-?-?-?-?-?-?-?- Effaced St Visit Note 04/25/20 -?-?-?-?-?-?-?-?-?-?-?-?- 9w 6d 215 lb (+0 oz) -?-?-?-?-?-?-?-?-?-?-?-?- 180 -?-?-?-?-?-?-?-?-?-?-?-?- SM- crl cons wit h lmp discussed vanishing twin with hematoma, reviewed bleeding precautions. 05/19/20 -?-?-?-?-?-?-?-?-?-?-?-?- 13w 2d 215 lb 2 oz (+2 oz) 140/86 Negative -?-?-?-?-?-?-?-?-?-?-?-?- Negative 150 -?-?-?-?-?-?-?-?-?-?-?-?- SM- no vb crampi ng SM- no vb cramping borderlin e bp, all bps at home WNL. labs ordered. 06/20/20 -?-?-?-?-?-?-?-?-?-?-?-?- 17w 6d 224 lb (+9 lb) 134/88 Negative -?-?-?-?-?-?-?-?-?-?-?-?- Negative 145 -?-?-?-?-?-?-?-?-?-?-?-?- SM- no vb crampi ng not much fm. 07/15/20 -?-?-?-?-?-?-?-?-?-?-?-?- 21w 3d 230 lb (+15 lb) 132/78 Negative -?-?-?-?-?-?-?-?-?-?-?-?- Negative 140 -?-?-?-?-?-?-?-?-?-?-?-?- SM- no vb lof go od fm no regula rctx 08/14/20 -?-?-?-?-?-?-?-?-?-?-?-?- 25w 5d 239 lb 8 oz (+24 lb 8 oz) 130/86 Negative -?-?-?-?-?-?-?-?-?-?-?-?- Negative 140 25 -?-?-?-?-?-?-?-?-?-?-?-?- SM- no vb lof go od fm no regular ctx discussed weight gain 08/25/20 -?-?-?-?-?-?-?-?-?-?-?-?- 27w 2d 239 lb 8 oz (+24 lb 8 oz) 124/88 -?-?-?-?-?-?-?-?-?-?-?-?- 150 27 -?-?-?-?-?-?-?-?-?-?-?-?- GP - no LOF, VB, DFM, ctx. Has not done GCT because kids are sick - plans to do tomorrow. 10 days from second COVID vaccine - plan to wait at least 4w for TDAP 09/10/20 -?-?-?-?-?-?-?-?-?-?-?-?- 29w 4d 247 lb (+32 lb) 138/70 Negative -?-?-?-?-?-?-?-?-?-?-?-?- Negative 153 29 -?-?-?-?-?-?-?-?-?-?-?-?- MH-No VB, LOF. Q 4wk growth US scheduled. Tdap, Larc 09/22/20 -?-?-?-?-?-?-?-?-?-?-?-?- 31w 2d 248 lb (+33 lb) 120/70 Negative -?-?-?-?-?-?-?-?-?-?-?-?- Negative 140 31 -?-?-?-?-?-?-?-?-?-?-?-?- Sm- no vb lof go od fm nor egular ctx some hip pain 10/08/20 -?-?-?-?-?-?-?-?-?-?-?-?- 33w 4d 251 lb 8 oz (+36 lb 8 oz) 134/80 Negative -?-?-?-?-?-?-?-?-?-?-?-?- Negative 150 33 -?-?-?-?-?-?-?-?-?-?-?-?- GP - no LOF, VB, DFM, ctx. Denies complaints. 10/20/20 -?-?-?-?-?-?-?-?-?-?-?-?- 35w 2d 254 lb (+39 lb) 128/80 Negative -?-?-?-?-?-?-?-?-?-?-?-?- Negative 135 35 Cephalic -?-?-?-?-?-?-?-?-?-?-?-?- GP - no LOF, VB, DFM, ctx. Denies complaints. 10/27/20 -?-?-?-?-?-?-?-?-?-?-?-?- 36w 2d 254 lb (+39 lb) 116/82 Negative -?-?-?-?-?-?-?-?-?-?-?-?- Negative 140 37 Cephalic 1 -?-?-?-?-?-?-?-?-?-?-?-?- SM- no vb lof go od fm no regular ctx 11/03/20 -?-?-?-?-?-?-?-?-?-?-?-?- 37w 2d 256 lb 8 oz (+41 lb 8 oz) 124/84 Negative -?-?-?-?-?-?-?-?-?-?-?-?- Negative 145 37 Cephalic 1 -?-?-?-?-?-?-?-?-?-?-?-?- 50 -2 GP -no LOF , VB, DFM, ctx. 11/14/20 -?-?-?-?-?-?-?--?-?-?-?-?- 38w 6d 257 lb 8 oz (+42 lb 8 oz) 130/82 Negative -?-?-?-?-?-?-?-?-?-?-?-?- Negative 140 38 Cephalic 1 -?-?-?-?-?--?-?-?-?-?-?-?- 50 -2 GP - no LO F, VB, DFM, ctx. Denies complaints. 11/20/20 -?-?-?-?-?-?-?-?-?-?-?-?- 39w 5d 261 lb (+46 lb) 136/72 Negative -?-?-?-?-?-?-?-?-?-?-?-?- Negative 140 2 -?-?-?-?-?-?-?-?-?-?-?-?- SM- no vb lof de c fm no regular ctx brenden nl at bedside, reviewed fm precautions 11/24/20 -?-?-?-?-?-?-?-?-?-?-?-?- 40w 2d 262 lb (+47 lb) 138/94 Negative -?-?-?-?-?-?-?-?-?-?-?-?- Negative 130 40 Cephalic 2 -?-?-?-?-?-?-?-?-?-?-?-?- 50 -3 GP - no LO F, VB, DFM, ctx. BP elevated. Sent to triage for BP monitoring and PreE labs. If discharged today, will plan IOL at 41/0 11/29/20 -?-?-?-?-?-?-?-?-?-?-?-?- 41w 0d 269 lb (+54 lb) 131/85 131/88 123/80 130/76 117/64 99/66 106/71 118/71 116/68 118/71 123/72 125/72 126/76 93/54 64/39 95/51 100/61 114/67 115/64 118/59 129/60 121/63 122/62 -?-?-?-?-?-?-?-?-?-?-?-?- -?-?-?-?-?-?-?-?-?-?-?-?- NST FHR Rate Baby A Baseline: 150 Variability:: Moderate Accelerations:: 15 x 15 Decelerations:: None NST Reactive:: Yes FHR Category:: Category I Uterine Activity:: Every 2-3 minutes ROS Eyes Eyes: Reports systems reviewed and no addt'l complaints, except as documented ENT HEENT: Reports systems reviewed and no addt'l complaints, except as documented Cardiovascular Cardiovascular: Reports systems reviewed and no addt'l complaints, except as documented Respiratory/Chest Respiratory/Chest: Reports systems reviewed and no addt'l complaints, except as documented Gastrointestinal Gastrointestinal: Reports systems reviewed and no addt'l complaints, except as documented Genitourinary Genitourinary: Reports systems reviewed and no addt'l complaints, except as documented Musculoskeletal Musculoskeletal: Reports systems reviewed and no addt'l complaints, except as documented Integumentary Integumentary: Reports systems reviewed and no addt'l complaints, except as documented Neurologic Neurologic: Reports systems reviewed and no addt'l complaints, except as documented Psychiatric Psychiatric: Reports systems reviewed and no addt'l complaints, except as documented Endocrine Endocrinology: Reports systems reviewed and no addt'l complaints, except as documented Hematologic/Lymphatic Hematologic/Lymphatic: Reports systems reviewed and no addt'l complaints, except as documented Allergic/Immunologic Allergic/Immunologic: Reports systems reviewed and no addt'l complaints, except as documented Vital Signs Vital Signs Vital Signs: 11/29/20 00:27 11/29/20 00:28 11/29/20 03:07 Temperature 96.3 F L Temperature Source Temporal Pulse Rate 119 H 104 H Blood Pressure 131/85 H BP Systolic 131 BP Diastolic 85 Pulse Ox 97 97 83 11/29/20 03:30 11/29/20 03:32 11/29/20 03:35 Temperature Temperature Source Pulse Rate 88 95 113 H Blood Pressure 131/88 H BP Systolic 131 BP Diastolic 88 Pulse Ox 98 99 11/29/20 03:37 11/29/20 03:40 11/29/20 03:42 Temperature Temperature Source Pulse Rate 100 87 92 Blood Pressure 123/80 H 130/76 H BP Systolic 123 130 BP Diastolic 80 76 Pulse Ox 95 11/29/20 03:46 11/29/20 03:48 11/29/20 03:51 Temperature Temperature Source Pulse Rate 99 109 H 99 Blood Pressure 117/64 BP Systolic 117 BP Diastolic 64 Pulse Ox 97 99 11/29/20 03:56 11/29/20 03:57 11/29/20 03:59 Temperature Temperature Source Pulse Rate 89 81 Blood Pressure 99/66 106/71 BP Systolic 99 106 BP Diastolic 66 71 Pulse Ox 97 11/29/20 04:01 11/29/20 04:02 11/29/20 04:05 Temperature Temperature Source Pulse Rate 88 91 Blood Pressure 118/71 BP Systolic 118 BP Diastolic 71 Pulse Ox 100 92 11/29/20 04:06 11/29/20 04:11 11/29/20 04:12 Temperature Temperature Source Pulse Rate 99 96 99 Blood Pressure 116/68 118/71 BP Systolic 116 118 BP Diastolic 68 71 Pulse Ox 98 98 11/29/20 04:14 11/29/20 04:16 11/29/20 04:17 Temperature Temperature Source Pulse Rate 91 100 97 Blood Pressure 123/72 H BP Systolic 123 BP Diastolic 72 Pulse Ox 92 97 11/29/20 04:22 11/29/20 04:23 11/29/20 04:26 Temperature Temperature Source Pulse Rate 98 111 H 107 H Blood Pressure 125/72 H 126/76 H BP Systolic 125 126 BP Diastolic 72 76 Pulse Ox 94 97 11/29/20 04:31 11/29/20 04:33 11/29/20 04:36 Temperature Temperature Source Pulse Rate 95 104 H 121 H Blood Pressure BP Systolic BP Diastolic Pulse Ox 96 90 98 11/29/20 04:37 11/29/20 04:41 11/29/20 04:42 Temperature 96.4 F L Temperature Source Temporal Pulse Rate 121 H 113 H Blood Pressure 93/54 L 64/39 L BP Systolic 93 64 BP Diastolic 54 39 Pulse Ox 99 11/29/20 04:46 11/29/20 04:49 11/29/20 04:51 Temperature Temperature Source Pulse Rate 81 81 Blood Pressure 95/51 L BP Systolic 95 BP Diastolic 51 Pulse Ox 100 100 11/29/20 04:52 11/29/20 04:56 11/29/20 04:57 Temperature Temperature Source Pulse Rate 86 81 86 Blood Pressure 100/61 114/67 BP Systolic 100 114 BP Diastolic 61 67 Pulse Ox 100 11/29/20 05:01 11/29/20 05:06 11/29/20 05:11 Temperature Temperature Source Pulse Rate 104 H 98 98 Blood Pressure 115/64 118/59 L BP Systolic 115 118 BP Diastolic 64 59 Pulse Ox 100 96 94 11/29/20 05:12 11/29/20 05:16 11/29/20 05:17 Temperature Temperature Source Pulse Rate 92 95 Blood Pressure 129/60 H 121/63 H BP Systolic 129 121 BP Diastolic 60 63 Pulse Ox 98 11/29/20 05:21 11/29/20 05:22 Temperature Temperature Source Pulse Rate 94 104 H Blood Pressure 122/62 H BP Systolic 122 BP Diastolic 62 Pulse Ox 97 Weight Weight: 269 lb Body Mass Index (BMI) 39.7 Physical Exam Const alert, oriented x3, no apparent distress, average body habitus, healthy appearing and well nourished HEENT normocephalic and moist oral mucous membranes Head and Scalp: atraumatic Eyes PERRL and EOMs intact bilaterally Neck full ROM Resp normal respiratory effort, no retractions and no use of accessory muscles Cardio regular rate and regular rhythm GI soft to palpation, non-tender and non-distended Extremity normal to inspection and full ROM Skin no rashes or lesions noted Neuro no focal motor deficits and no sensory deficits noted Psych mental status grossly normal, affect normal, speech normal and activity/motor behavior normal Labs Labs Labs: Blood Type A POSITIVE Antibody Screen NEGATIVE Hct 41.4 % (37-47) Hgb 13.6 g/dL (12.0-15.0) Obstetrics US Syphilis Total Ab Non-reactive Rubella IgG Antibody Reactive (Nonreactive) Hep Bs Antigen Non-Reactive (Nonreactive) Neisseria gonorrhoeae DNA (ASTER) Negative (Negative) HIV 1&2 Antibody Non-Reactive (Nonreactive) C.trachomatis DNA (PCR) Negative (Negative) Glucose 1 Hr 50 gm 117 mg/dL (70-140) Group B Strep DNA Negative (Negative) Rhogam given: No Miscellaneous Test Assessment & Plan (1) Lab test positive for detection of COVID-19 virus: COMMENT: 03/31/20 (2) COVID-19 affecting , antepartum: COMMENT: baby ASA; growth US q4w starting at 28 weeks (3) : QUALIFIERS: Weeks of gestation: 40 weeks Qualified Code(s): Z3A.40 - 40 weeks gestation of COMMENT: declines genetics, declines carrier, anatomy nl but needs addtnl views, f/u growth scan nl, growth scan 09/04 & 09/29 nl, 10/28 nl GBS NEG (4) Supervision of other normal : COMMENT: PRR PRASHANT: 11/22/20 Girl! Yani PC: Naomy Whelan Spouse: Tomasz (5) Gestational hypertension: COMMENT: in previous pregnancies (6) Twin with loss and retention of one fetus, antepartum: COMMENT: seen at 9 weeks, other pole 6 weeks. subchorionic hematoma (7) COVID-19 vaccine series completed: (8) Transient hypertension of : COMMENT: BP elevated 11/24. Sent for BP monitoring and PreE labs (9) Active labor at term: PLAN: Patient presents IAL, plan expectant management for , pitocin/AROM PRN if needed. Pain management: plans epidural. GBS negative. Management of any complications: none I have reviewed the [facility] and made any clinically relevant updates.
[2020-11-29] MEDS: Oxytocin 30 units/NS 500 ml 30 UNITS/500 ML IV.SOLN 334 UNITS IV (06:17)
--- NOTE | 2020-11-29 06:27 | OP.PCM_ITS ---
Assessment & Plan (1) Vaginal delivery: COMMENT: GP IAL 11/29 Girl-Yani (2) Active labor at term: (3) Lab test positive for detection of COVID-19 virus: COMMENT: 03/31/20 (4) COVID-19 affecting , antepartum: COMMENT: baby ASA; growth US q4w starting at 28 weeks (5) : QUALIFIERS: Weeks of gestation: 40 weeks Qualified Code(s): Z3A.40 - 40 weeks gestation of COMMENT: declines genetics, declines carrier, anatomy nl but needs addtnl views, f/u growth scan nl, growth scan 09/04 & 09/29 nl, 10/28 nl GBS NEG (6) Supervision of other normal : COMMENT: PRR PRASHANT: 11/22/20 Girl! Yani PC: Naomy Whelan Spouse: Tomasz (7) Gestational hypertension: COMMENT: in previous pregnancies (8) Twin with loss and retention of one fetus, antepartum: COMMENT: seen at 9 weeks, other pole 6 weeks. subchorionic hematoma (9) COVID-19 vaccine series completed: (10) Transient hypertension of : COMMENT: BP elevated 11/24. Sent for BP monitoring and PreE labs Maternal Data Information PRASHANT Calculator Estimated Delivery Date Method Current WG Current Estimate 11/22/20 LMP (Certain) 41w 0d Other Estimates 11/26/20 Ultrasound #1 40w 3d Vaginal Delivery Maternal Presentation Maternal Presentation: Active Labor Maternal Presentation: 35-year-old G3, P2 at 41 weeks gestation admitted in active labor. Patient made cervical change to complete dilation without augmen tation. Operative Information Date of Procedure: 11/29/20 Pre-Operative Diagnosis: Term , active labor Post-Operative Diagnosis: Same, shoulder dystocia Surgery / Procedure Performed: Spontaneous Vaginal Delivery Type of Anesthesia: Epidural Drain: Martinez to straight drain Estimated Blood Loss: 250 Findings Description of Procedure: Patient began pushing and delivered the head in the ASTRID presentation. The head was delivered atraumatically and no nuchal cord was noted. Following delivery of the head, the head retracted against the perineum. Initial attempt was made at delivering the anterior shoulder and was unsuccessful. Shoulder dystocia was announced to the room. Additional help was called to the room. Maryse maneuver and suprapubic pressure were performed. Javon maneuver was performed to rotate the shoulders and shoulders delivered successfully. No excessive force was used at any time. The anterior and posterior shoulders delivered without complication followed by the rest of the infant and the was placed on the maternal abdomen. The cord was immediately clamped and cut and gentle traction was applied to the cord. The cord was then noted to detach from the uterus and a manual extraction of the placenta was performed. The placenta was inspected and appeared intact. The perineum and vagina were inspected and a midline first-degree perineal laceration was noted and repaired with a [id number] of 3-0 Vicryl Rapide suture. EBL was 250 cc. Patient and infant tolerated delivery well. Presentation: Vertex and ASTRID Amniotic Membrane Rupture Type: Spontaneous Amniotic Fluid Description: Moderate meconium Placental Delivery Description: Manual Removal Placenta Disposition: [facility] Cord Vessel Description: 3 Vessels Cord Entanglement: None A Gender: Female Delayed Cord Clamping: No Post Vaginal Delivery Medications Given After Delivery: IV Pitocin Episiotomy Description: None Laceration: Midline, Perineal Extension/lac and 1st degree Complication Complications: - (Shoulder dystocia, retained placenta) Procedures Urinary/Genital [id number]: [id number] Vaginal Delivery [facility]
--- NOTE | 2020-11-29 06:33 | PCM.DC ---
Discharge Instructions Diet Discharge Diet: No restrictions Activity Discharge Activity: Return to Normal Activity, May Not Drive (while taking narcotic pain medications.) and May Shower May resume sexual activity in: 4-6 weeks Dressing / Incision Call your doctor if your incision/area has: Continuous Slow Oozing, Sudden Increased Bleeding, Increased Pain/ Swelling, Increased Redness and Foul Smelling Discharge Follow Up Care When: Call to make an appointment with your doctor in 6 weeks. If you had elevated Blood Pressure or 4th degree laceration you will need to be seen in 2 weeks. Test Results: Test results from this visit will be discussed in further detail at your follow-up appointment, if applicable. Discharge Plan Admission Admit Date/Time: 11/29/20 02:40 Primary Reason for Your Visit: Labor Attending Provider: Yarely Norris Primary Care Provider: Jake Hurst Instructions Patient Instructions: After a Vaginal Discharge Orders/Prescriptions Prescriptions: New ibuprofen 800 mg tablet 800 mg PO Q8H PRN (Reason: pain) Qty: 60 RF: 1 Continued PNV-DHA 27 mg iron-1 mg -300 mg capsule PO DAILY RF: 0 aspirin 81 mg Capsule DAILY RF: 0 Referrals / Follow Up: Jake Hurst MD [Primary Care Provider] -
[2020-11-29] MEDS: Methylergonovine 0.2 MG/ML Ampul IM (07:07)
[2020-11-29] MEDS: miSOPROStol 200 MCG Tablet 1000 MCG RC (07:53)
[2020-11-29] MEDS: 0.9% Saline Lock 10 ML Syringe IV (09:23)
[2020-11-29] MEDS: Ibuprofen 600 MG Tablet PO ×2 (10:07→19:39)
[2020-11-29] MEDS: Aspirin 81 MG TAB.CHEW PO (12:36)
[2020-11-29] MEDS: Acetaminophen 500 MG Tablet 1000 MG PO (17:59)
[2020-11-29] MEDS: Senna/Docusate Sodium 1 Tablet PO (19:39)
[2020-11-30] VITALS (7 sets, daily range): BP systolic 121–134; BP diastolic 76–81; PULSE 64–98; RESP 18–20; TEMP 35.9–36.4; O2SAT 82–99
[2020-11-30] MEDS: Ibuprofen 600 MG Tablet PO ×2 (03:20→10:53)
--- NOTE | 2020-11-30 07:22 | PCM.PN.OB ---
Subjective Subjective Patient doing well without complaints. Tolerating PO. Ambulating and voiding without difficulty. feeding well. Denies chest pain, shortness of breath, calf pain/swelling, fevers, chills, lightheadedness. Objective Data Objective Data Vital Signs: Vital Signs Temp Pulse Resp BP Pulse Ox 96.6 F L 89 18 134/79 H 99 11/30/20 03:20 11/30/20 03:20 11/30/20 03:20 11/30/20 03:20 11/30/20 03:20 Oxygen Delivery Method Room Air Weight: 269 lb Body Mass Index (BMI) 39.7 Intake & Output: Intake and Output for Last 24 Hours 11/28/20 11/29/20 11/30/20 23:59 23:59 23:59 Intake Total 2456.20 / 2456.20 Output Total 400 / 400 Balance 2055.20 / 2055. Lab / Micro Data Result Diagrams: 11/29/20 02:45 ROS Constitutional Constitutional: Reports systems reviewed and no addt'l complaints, except as documented Cardiovascular Cardiovascular: Reports systems reviewed and no addt'l complaints, except as documented Respiratory/Chest Respiratory/Chest: Reports systems reviewed and no addt'l complaints, except as documented Gastrointestinal Gastrointestinal: Reports systems reviewed and no addt'l complaints, except as documented Physical Exam Const alert, oriented x3 and no apparent distress HEENT Head and Scalp: atraumatic Resp normal respiratory effort GI soft to palpation and non-tender Bimanual Exam - Vag & Uterus: uterus non-tender Uterus Palpation: uterus fundus firm (below Umbilicus) Assessment & Plan (1) Vaginal delivery: COMMENT: GP IAL 11/29 Girl-Yani, shoulder dystocia PLAN: s/p PPD # 1 1. routine post delivery care 2. breast feeding- support given 3. rh positive 4. rubella immune
[2020-11-30] MEDS: Senna/Docusate Sodium 1 Tablet PO (08:24)
[2020-11-30] MEDS: Aspirin 81 MG TAB.CHEW PO (08:24)
[2020-11-30] MEDS: Acetaminophen 500 MG Tablet 1000 MG PO (11:51)
== END 2020-11-30 11:55 | disposition home or self-care (01) | DRG 807 ==
LOC: WPOUT 02:42 → WP 02:42
PROVIDERS: Admitting Provider Obstetrics & Gynecology; PCP Family Medicine; Visit Provider Obstetrics & Gynecology
DX: O13.4 Gestational [pregnancy-induced] hypertension without significant proteinuria, complicating childbirth (principal); Z37.0 Single live birth; O66.0 Obstructed labor due to shoulder dystocia; O73.1 Retained portions of placenta and membranes, without hemorrhage; O70.0 First degree perineal laceration during delivery; O48.0 Post-term pregnancy; Z3A.41 41 weeks gestation of pregnancy
CPT/HCPCS: 59025; 59050; 85025; 86850; 86900; 86901; 99218; J7120; A4216; G0378

== ENCOUNTER → 2021-01-08 | Outpatient (CLI) | payer OTHER, SELFPAY ==
[2021-01-13 19:50] LABS: HPV APTIMA, High Risk Negative (Negative)
== END | disposition home or self-care (01) ==
LOC: LABSPEC 16:50
PROVIDERS: PCP Family Medicine; Referring Provider Obstetrics & Gynecology; Visit Provider Obstetrics & Gynecology
DX: Z01.419 Encounter for gynecological examination (general) (routine) without abnormal findings (principal)
CPT/HCPCS: 87624; 88175; G0145

== ENCOUNTER → 2021-11-30 | Outpatient (CLI) | payer OTHER, SELFPAY ==
[2021-11-30 15:28] LABS: Absolute Lymphocyte Count 1.27 X10^3/uL (0.83-4.51); Absolute Neutrophil Count 3.7 X10^3/uL (2.0-7.7); Basophil# 0.02 X10^3/uL; Basophil% 0.4 % (0-1); Eosinophil# 0.04 X10^3/uL; Eosinophils% 0.8 % (0-5); Hematocrit 41.1 % (37-47); Hemoglobin 13.2 g/dL (12.0-15.0); Lymphocyte # 1.27 X10^3/ul (0.83-4.51); Mean Corp Hgb Conc 32.1 g/dL (32-36); Mean Corpuscular Hgb 29.2 pg (27.0-32.0); Mean Corpuscular Volume 90.9 fL (81-99); Mean Platelet Vol. 10.5 fl (6.2-12.0); Monocyte# 0.24 X10^3/uL; Monocyte% 4.5 % (0-10); NRBC Flagged by Analyzer 0 % (0-5); Neutrophil # 3.71 X10^3/uL (2.7-7.7); Neutrophil % 70.1 % (47-70); Platelet Count 260 K/mm3 (150-450); RBC Distribution Width CV 13.3 % (11.6-14.6); RBC Distribution Width SD 44.4 fl (35.1-43.9); Red Blood Count 4.52 M/mm3 (4.2-5.4); White Blood Count 5.3 K/mm3 (4.4-11.0)
[2021-11-30 15:50] LABS: Hemoglobin A1c 5.4 % (3.8-5.6)
[2021-11-30 15:57] LABS: ALB/GLOB Ratio 1.1 RATIO (0.9-2.4); AST(SGOT) 13 U/L (15-37); Alanine Aminotransfer ALT/SGPT 21 U/L (13-56); Albumin, Serum 3.8 g/dL (3.2-5.0); Alkaline Phosphatase 77 U/L (45-117); Anion Gap 6 (5-15); BUN 10 mg/dL (7-18); BUN/Creat Ratio 16.1 RATIO (10-20); Calcium,Total 8.9 mg/dL (8.5-10.1); Chloride 105 mmol/L (98-107); Cholesterol 185 mg/dL (200); Creatinine, Serum 0.62 mg/dL (0.55-1.02); EST Glomerular Filtration Rate 116 mL/min (>60); Est Glom Filt Rate - Afr Amer 140 mL/min (>60); Globulin 3.6 g/dL (2.2-4.2); Glucose 82 mg/dL (74-106); High Density Lipoprotein 66 mg/dL; Potassium 3.8 mmol/L (3.5-5.1); Protein, Total 7.4 g/dL (6.4-8.2); Sodium Level 139 mmol/L (136-145); Thyroid Stim Hormone (TSH) 1.67 uIU/mL (0.358-3.74); Triglycerides 37 mg/dL; Very Low Density Lipoprotein 7 mg/dL (5-40)
== END | disposition home or self-care (01) ==
LOC: MFPLAB 12:15
PROVIDERS: PCP Family Medicine; Referring Provider Family Medicine; Visit Provider Family Medicine
DX: Z01.419 Encounter for gynecological examination (general) (routine) without abnormal findings (principal); Z13.29 Encounter for screening for other suspected endocrine disorder; Z13.220 Encounter for screening for lipoid disorders; Z13.1 Encounter for screening for diabetes mellitus; Z13.0 Encounter for screening for diseases of the blood and blood-forming organs and certain disorders involving the immune mechanism
CPT/HCPCS: 36415; 80053; 80061; 83036; 84443; 85025

== ENCOUNTER → 2023-07-20 | Outpatient (CLI) | payer OTHER, SELFPAY ==
[2023-07-20 09:42] LABS: Absolute Lymphocyte Count 1.23 X10^3/uL (0.83-4.51); Absolute Neutrophil Count 2.4 X10^3/uL (2.0-7.7); Basophil# 0.02 X10^3/uL; Basophil% 0.5 % (0-1); Eosinophil# 0.09 X10^3/uL; Eosinophils% 2.3 % (0-5); Hematocrit 41.9 % (37-47); Hemoglobin 13.1 g/dL (12.0-15.0); Lymphocyte # 1.23 X10^3/ul (0.83-4.51); Lymphocyte % 30.8 % (19-41); Mean Corp Hgb Conc 31.3 g/dL (32-36); Mean Corpuscular Hgb 28.2 pg (27.0-32.0); Mean Corpuscular Volume 90.1 fL (81-99); Mean Platelet Vol. 9.7 fl (6.2-12.0); Monocyte# 0.23 X10^3/uL; Monocyte% 5.8 % (0-10); NRBC Flagged by Analyzer 0 % (0-5); Neutrophil # 2.41 X10^3/uL (2.7-7.7); Neutrophil % 60.3 % (47-70); Platelet Count 270 K/mm3 (150-450); RBC Distribution Width CV 13.5 % (11.6-14.6); RBC Distribution Width SD 44.2 fl (35.1-43.9); Red Blood Count 4.65 M/mm3 (4.2-5.4)
[2023-07-20 10:30] LABS: Vitamin D,25 Hydroxy 33.4 ng/mL
[2023-07-20 10:40] LABS: ALB/GLOB Ratio 1.1 RATIO (0.9-2.4); AST(SGOT) 11 U/L (15-37); Alanine Aminotransfer ALT/SGPT 20 U/L (13-56); Albumin, Serum 3.8 g/dL (3.2-5.0); Alkaline Phosphatase 59 U/L (45-117); Anion Gap 3 (5-15); BUN 14 mg/dL (7-18); BUN/Creat Ratio 21.7 RATIO (10-20); Chloride 107 mmol/L (98-107); Cholesterol 210 mg/dL (200); Creatinine, Serum 0.64 mg/dL (0.55-1.02); EST Glomerular Filtration Rate 110 mL/min (>60); Est Glom Filt Rate - Afr Amer 133 mL/min (>60); Globulin 3.5 g/dL (2.2-4.2); Glucose 88 mg/dL (74-106); High Density Lipoprotein 61 mg/dL; Potassium 4.2 mmol/L (3.5-5.1); Protein, Total 7.3 g/dL (6.4-8.2); Sodium Level 139 mmol/L (136-145); Thyroid Stim Hormone (TSH) 1.95 uIU/mL (0.358-3.74); Triglycerides 56 mg/dL; Very Low Density Lipoprotein 11 mg/dL (5-40)
== END | disposition home or self-care (01) ==
LOC: LAB 09:07
PROVIDERS: PCP Family Medicine; Referring Provider Obstetrics & Gynecology; Visit Provider Obstetrics & Gynecology
DX: E88.810 Metabolic syndrome (principal); E66.9 Obesity, unspecified
CPT/HCPCS: 36415; 80053; 80061; 82306; 83036; 84443; 85025

== ENCOUNTER → 2023-07-22 | Outpatient (CLI) | payer OTHER, SELFPAY ==
--- NOTE | 2023-07-22 07:23 | EKG12_ITS ---
Test Reason : OBSETITY Blood Pressure : / mmHG Vent. Rate : 073 BPM Atrial Rate : 073 BPM P-R Int : 124 ms QRS Dur : 080 ms QT Int : 364 ms P-R-T Axes : 036 044 045 degrees QTc Int : 401 ms Normal sinus rhythm with sinus arrhythmia Low voltage QRS Borderline ECG Confirmed by Wenceslao Acosta ([id number]), index editor NIMO ROGERS ([id number]) on 07/25/2023 8:40:11 AM Referred By: Lynn Bowen Confirmed By:Wenceslao Acosta
== END | disposition home or self-care (01) ==
LOC: PSN 07:23
PROVIDERS: PCP Family Medicine; Referring Provider Obstetrics & Gynecology; Visit Provider Obstetrics & Gynecology
DX: E66.9 Obesity, unspecified (principal); E88.810 Metabolic syndrome
CPT/HCPCS: 93005

== ENCOUNTER → 2023-10-28 | Outpatient (CLI) | payer OTHER, SELFPAY ==
--- NOTE | 2023-10-28 12:35 | ECHOCS_ITS ---
Reason For Study: Abnormal EKG Procedure This was a 2D Doppler, Color Flow transthoracic echocardiogram. Contrast injection was performed. Exam performed in department. Left Ventricle Normal size and thickness. The left ventricular ejection fraction is 55 %. Normal diastololic function. Right Ventricle Normal right ventricle. Atria The left and right atria are normal. Mitral Valve Trivial mitral valve insufficiency. Tricuspid Valve Trivial tricuspid valve insufficiency. Normal pulmonary artery pressure. Aortic Valve Trisinus/trileaflet aortic valve. Pulmonic Valve The pulmonic valve is not well visualized. Great Vessels Normal sized aortic root. Pericardium/Pleural No pericardial effusion. Medication 22 gauge I.V. with prn adaptor inserted into right arm. Diluted definity 3.5ml given slow IV push to enhance endocardial definition. MMode/2D Measurements & Calculations LVIDd: 5.0 cm IVSd: 0.88 cm Ao root diam: 3.2 cm LVIDs: 3.5 cm LVPWd: 0.74 cm LA dimension: 3.5 cm FS: 31.0 % LAV(MOD-bp): 51.3 ml LVAd ap4: 38.8 cm2 SV(MOD-sp4): 72.4 ml LAV(MOD-bp) Indexed: 23.1 ml/m2 LVLd ap4: 8.5 cm LAV(MOD-sp2): 57.1 ml EDV(MOD-sp4): 142.6 ml LAV(MOD-sp4): 40.6 ml EDV(sp4-el): 149.3 ml LVAs ap4: 24.7 cm2 LVLs ap4: 7.1 cm ESV(MOD-sp4): 70.2 ml ESV(sp4-el): 72.5 ml EF(MOD-sp4): 50.8 % EF(sp4-el): 51.5 % SV(sp4-el): 76.8 ml LA A4 area: 16.6 cm2 RA A4 area: 14.9 cm2 TAPSE: 1.9 cm Time Measurements MV dec time: 0.20 sec Doppler Measurements & Calculations MV E max patrick: 67.2 cm/sec Lat Peak E' Patrick: 16.0 cm/sec Med Peak E' Patrick: 10.8 cm/sec MV A max patrick: 50.6 cm/sec E/E' lat: 4.2 E/E' med: 6.2 MV E/A: 1.3 MV V2 max: 75.0 cm/sec MV P1/2t max patrick: 75.2 cm/sec Ao V2 max: 104.0 cm/sec MV max P.3 mmHg MV P1/2t: 59.0 msec Ao max P.3 mmHg MV V2 mean: 44.0 cm/sec Ao V2 mean: 73.1 cm/sec MV mean P.92 mmHg MV dec slope: 373.6 cm/sec2 Ao mean P.4 mmHg MV V2 VTI: 18.6 cm MVA(P1/2t): 3.7 cm2 Ao V2 VTI: 23.5 cm AV (velocity ratio): 0.76 LV V1 max: 82.6 cm/sec PA V2 max: 71.4 cm/sec LV V1 max P.7 mmHg PA max PG (full): 0.65 mmHg PI dec slope: 182.6 cm/sec2 LV V1 mean P.6 mmHg PA V2 mean: 52.1 cm/sec LV V1 mean: 59.6 cm/sec PA mean PG (full): 0.42 mmHg LV V1 VTI: 18.0 cm TR max patrick: 221.6 cm/sec TR max P.6 mmHg ECHO/Echo Complete W/ Contrast Interpretation Summary The left ventricular ejection fraction is 55 %. Ordering Physician: Aysha Finn Referring Physician: Shalom Hurst MD Performed By: Romain Escalera RCS
== END | disposition home or self-care (01) ==
LOC: CVS 12:34
PROVIDERS: PCP Family Medicine; Referring Provider Internal Medicine Cardiovascular Disease; Visit Provider Internal Medicine Cardiovascular Disease
DX: R94.31 Abnormal electrocardiogram [ECG] [EKG] (principal)
CPT/HCPCS: 93306; Q9957; A4216; C8929

== ENCOUNTER → 2024-10-18 | Outpatient (CLI) | payer OTHER, SELFPAY ==
--- OUTSIDE RECORDS SUMMARY | 2024-10-18 09:04 | XMS RPT_ITS | CCD ---
Author Organization [facility] Care Team Providers Care Belly Packer Name Role Phone Jefferson IZQUIERDO, Lynn Sheppard Unavailable [phone] ELMIRA SALDANA Unavailable Unavailable LYNN PAULINO Unavailable UnavailVIRIDIANA Vo Unavailable Unavailable Dr. Jake Hurst Primary Care Provider [phone] Dr. Jake Hurst Referring Provider Norm ROSALES, CONNIE Denis Attending Provider [phone] David DEVINE, Fatimah Attending Unavailable Ranney, Christopher Primary Care Unavailable Ranney, Christopher Primary Care Unavailable Aakash, Aysha Attending Unavailable Aakash, Aysha Referring Unavailable Lynn Paulino Attending Unavailable Aris, Christophnasima Referring Unavailable Ranney, Christopher Primary Care Unavailable Yvonne Rose Primary Care Unavailable Yvonne Rose Referring Unavailable Lynn Paulino Attending Unavailable Aris, Christopher Primary Care Unavailable Aakash, Aysha Attending Unavailable Ranzulma, Christopher Referring Unavailable Wenceslao Acosta Attending Unavailable AguilaranthonyLynn Referring Unavailable Ranney, Christopher Primary Care Unavailable AguilaranthonyLynn Attending Unavailable Lynn Paulino Referring Unavailable Ranney, Christopher Primary Care Unavailable Lynn Paulino Attending Unavailable MarcLynn san Referring Unavailable Ranney, Christopher Primary Care Unavailable Ranney, Christopher Primary Care Unavailable Aakash, Aysha Attending Unavailable AguilaranthLynn ospina Attending Unavailable Ranzulma, Christophnasima Referring Unavailable Ranney, Christopher Primary Care Unavailable Lynn Paulino Attending Unavailable Ranney, Christophnasima Referring Unavailable Ranney, Christopher Primary Care Unavailable Ranney, Christopher Primary Care Unavailable Yvonne Rose Referring Unavailable Lynn Paulino Attending Unavailable Allergies Allergy Classification Reported Allergen(s) Allergy Type Date of Onset Reaction(s) Facility (1 source) avocado allergenic extract Drug Allergy 1 Food Allergy [facility] Work Phone: (1 source) Banana Extract Drug Allergy 1 Food Allergy [facility] Work Phone: (1 source) [place] extract Drug Allergy 1 Shortness of breath [facility] Work Phone: (1 source) Melon Allergy to substance 1 Shortness of breath [facility] Work Phone: Medications Current Medications Medication Drug Class(es) Dates Sig (Normalized) Sig (Original) Lactobacillus Combination No.9 (Adult 50 Plus Probiotic) 4 billion cell capsule (1 source) Start: 01-08-2021 Lactobacillus Combination No.9 (Adult 50 Plus Probiotic) 4 billion cell capsule Active PO January 08, 2021 12:00am Multivit 59-Snrc-Mradrg 1-Dha (Pnv-Dha) 27 mg iron-1 mg -300 mg capsule (1 source) Start: 04-15-2020 take 1 capsule by mouth once daily Multivit 65-Lpdo-Ycyrca 1-Dha (Pnv-Dha) 27 mg iron-1 mg -300 mg capsule Active CAP PO DAILY April 15, 2020 1:00am Completed/Discontinued Medications Medication Drug Class(es) Dates Sig (Normalized) Sig (Original) acetaminophen 325 mg / oxyCODONE hydrochloride 5 mg oral tablet (1 source) Opioid Agonist Start: 03-14-2015 End: 02-17-2017 take 2 tablets by mouth every four hours as needed Oxycodone-Acetamin ophen Discontinued 2 TABLET PO EVERY 4 HOURS NEEDED March 14, 2015 1:00am February 17, 2017 9:22am Aspirin (1 source) Platelet Aggregation Inhibitor, Nonsteroidal Anti-inflammatory Drug Start: 11-24-2020 End: 01-08-2021 Aspirin Discontinued DAILY November 24, 2020 12:00am January 08, 2021 2:39pm Norgestimate-Ethinyl Estradiol (2 sources) Progestin, Estrogen Start: 10-01-2019 End: 04-15-2020 take 1 tablet by mouth once daily Norgestimate-Ethin yl Estradiol (Sprintec (28)) 0.25-35 mg-mcg tablet Discontinued 1 TABLET PO DAILY October 01, 2019 12:00am April 15, 2020 2:48pm Start: 11-28-2018 End: 04-15-2020 take 1 tablet by mouth once daily Norgestimate-Ethinyl Estradiol (Sprintec (28)) 0.25-35 mg-mcg tablet Discontinued 1 TABLET PO daily November 28, 2018 12:00am April 15, 2020 2:47pm ibuprofen 800 mg oral tablet (1 source) Nonsteroidal Anti-inflammatory Drug Start: 11-29-2020 End: 01-08-2021 take 800 mg by mouth every eight hours Ibuprofen Discontinued 800 MG PO Q8H 60 November 29, 2020 12:00am January 08, 2021 2:39pm naproxen 250 mg oral tablet (2 sources) Nonsteroidal Anti-inflammatory Drug Start: 08-21-2017 End: 09-29-2017 take 250-500 mg by mouth every eight hours as needed Naproxen Discontinued 250 - 500 MG PO EVERY 8 HOURS NEEDED August 21, 2017 12:00am September 29, 2017 10:03am Start: 03-14-2015 End: 02-17-2017 take 250-500 mg by mouth every eight hours as needed Naproxen Discontinued 250 - 500 MG PO EVERY 8 HOURS NEEDED March 14, 2015 1:00am February 17, 2017 9:22am phentermine hydrochloride 37.5 mg oral capsule (3 sources) Sympathomimetic Amine Anorectic Start: 12-18-2018 End: 04-15-2020 take 1 capsule by mouth once daily 30 minutes after breakfast Phentermine (Adipex-P) 37.5 mg capsule Discontinued 37.5 MG PO DAILY February 12, 2019 9:17am April 15, 2020 2:48pm must administer 30 minutes before or 1-2 hours after breakfast Vit,Uzgj53-Aucr-Igb ic (1 source) Start: 03-13-2015 End: 11-28-2018 take 1 tablet by mouth once daily Vit,Ajly70-Bwlq-V olic Discontinued 1 TABLET PO DAILY March 13, 2015 1:00am November 28, 2018 2:47pm VIT-FE FUMARATE-FA (8 sources) Start: 11-12-2016 VITAMINS 28-0.8 MG TABS VIT-FE FUMARATE-FA [id number] Alpa Acosta Problems Active Problems Problem Classification Problem Date Documented Da te Episodic/Chronic Disorders of lipid metabolism (1 source) Pure hypercholesterolemi a, unspecified; Translations: [Pure hypercholesterolemi a, unspecified] Onset: 12-26-2023 Chronic Disorders usually diagnosed in infancy, childhood, or adolescence (1 source) Other specified behavioral and emotional disorders with onset usually occurring in childhood and adolescence; Translations: [Other specified behavioral and emotional disorders with onset usually occurring in childhood and adolescence] Onset: 08-24-2023 Chronic E Codes: Natural/environment (2 sources) Insect bite - wound; Translations: [Bitten or stung by nonvenomous insect and other nonvenomous arthropods, initial encounter] Episodic Hypertension complicating ; childbirth and the puerperium (2 sources) -induced hypertension; Translations: [Gestational [-induced] hypertension without significant proteinuria, unspecified trimester] Episodic Menstrual disorders (14 sources) Secondary oligomenorrhea; Translations: [Secondary oligomenorrhea] Onset: 11-12-2016 Resolved: 01-10-2017 11-12-2016 Chronic Normal and/or delivery (17 sources) ; Translations: [Vaginal delivery] Onset: 12-17-2016 Resolved: 01-10-2017 12-17-2016 Episodic Other complications of ; puerperium affecting management of mother (1 source) Continuing after intrauterine of twin fetus; Translations: [Twin with loss and retention of one fetus, antepartum] Episodic Other complications of (1 source) Disease caused by 2019-nCoV; Translations: [Other viral diseases complicating , unspecified trimester] Episodic Other endocrine disorders (14 sources) Polycystic ovaries; Translations: [Polycystic ovarian syndrome] Onset: 11-15-2016 Resolved: 01-10-2017 01-10-2017 Chronic Other female genital disorders (1 source) History of abnormal cervical Papanicolaou smear ; Translations: [Personal history of other diseases of the female genital tract] Episodic Other nutritional; endocrine; and metabolic disorders (1 source) Obesity, unspecified; Translations: [Obesity, unspecified] Onset: 12-26-2023 Chronic Other nutritional; endocrine; and metabolic disorders (1 source) Metabolic syndrome; Translations: [Metabolic syndrome] Onset: 12-26-2023 Chronic Other nutritional; endocrine; and metabolic disorders (1 source) Other obesity; Translations: [Other obesity] Onset: 12-26-2023 Chronic Residual codes; unclassified (1 source) History of vaccination; Translations: [Personal history of other drug therapy] Episodic Unclassified (1 source) Binge eating disorder, unspecified; Translations: [Binge eating disorder, unspecified] Onset: 12-26-2023 Viral infection (15 sources) Human papilloma virus infection; Translations: [COVID-19] Onset: 12-17-2016 Resolved: 01-10-2017 01-10-2017 Episodic Past or Other Problems Problem Classification Problem Date Documented Date Episodic/Chronic Other complications of (15 sources) High risk ; Translations: [Other placental disorders, unspecified trimester] Onset: 01-07-2017 01-21-2017 Episodic Other female genital disorders (8 sources) Cervical intraepithelial neoplasia grade 1; Translations: [Mild cervical dysplasia] Onset: 11-12-2016 11-12-2016 Episodic Other screening for suspected conditions (not mental disorders or infectious disease) (1 source) Abnormal electrocardiogram [ECG] [EKG]; Translations: [Abnormal electrocardiogram [ECG] [EKG]] Onset: 11-10-2023 Episodic Other skin disorders (14 sources) Hirsutism; Translations: [Hirsutism] Onset: 11-12-2016 Resolved: 01-10-2017 01-10-2017 Episodic Unclassified (14 sources) Gynecologic examination ; Translations: [Encounter for gynecological examination (general) (routine) with abnormal findings] Onset: 11-12-2016 Resolved: 01-10-2017 11-12-2016 Unclassified (1 source) Normal labor; Translations: [Active labor at term] Results Test Name Value Interpretation Reference Range Facility Office Visit Reporton 2023 Office Visit Report [facility] [address] [place] [address] OFFICE VISIT Date of Service: 01/11/24 MR#: [id number] Acct: [id number] Patient: SHE AGUILAR SENG Rep #: [id number] : 1985 Provider: Dr. Lynn perry MD Age/Sex: 38/F Location[place] [facility] [place] [facility] [place]: Signed Intake Vital Signs 12/13/23 13:28 01/11/24 08:26 Height 5 ft 7 in 5 ft 7 in Weight: 227 lb 225 lb BMI 35.5 35.2 BP 136/88 H 121/60 H Pulse 87 83 Intake Visit Reasons: 1 M FU Chief Complaint: Follow up medication Is patient in pain?: No Allergies No Known Allergies Allergy (Unverified 01/11/24 08:42) Medications ???Medication ???Instructions ???Recorded ???Confirmed ???Type multivitamin 1 tab PO DAILY 08/24/23 01/11/24 History multivitamin no.47-iron fum 27 1 cap PO DAILY 08/24/23 01/11/24 History mg-folate no.1 1 mg-dha 300 mg capsule (PNV-DHA) topiramate 25 mg tablet (Topamax) 25 mg PO DAILY 10/17/23 01/11/24 History phentermine 37.5 mg tablet 18.75 mg (1/2 x 37.5 mg) PO QDAY 12/13/23 01/11/24 Rx (Adipex-P) #16 tabs Nurse's Note: Patient states she is now only taking medication intermittently. She is not taking medication during her cycle and PMS as it causes anxiety. Patient states she does feel like she is feeling better this last month. She will send a portal message to discuss questions on intermittent use. patient seen for obesity related comorbidities/weight management medication follow up. WM questionnaire answers reviewed with patient, and any questions answered. support given to patient consistent with treatment plan. vitals taken and script renewed by provider if appropriate. all relevant findings reviewed with the provider, script renewed if appropriate, and any changes to current treatment as well as the follow up plan reviewed with patient. Questionnaires Weight Management Follow-Up What nutritional plan/diet are you following?: Calorie counting How are you tracking your food intake?: My fitness pal On average, how many days a week are you recording your food intake?: 7 How many days a week are you staying within your recommended intake goals?: 7 What is your current weekly exercise?: Close my apple rings everyday On a scale of 1-10, how difficult is it to follow your current weight management plan?: 3 What are you struggling most with right now in following your weight loss plan?: Nothing Side Effects: Yes Chest Pain (Unsure of why/when/patter), No Palpitations, Yes Increased Heart Rate (Sometimes resting rate hi), No Irregular Heart Rhythm, No Increased Blood Pressure, No Change in breathing patterns, No Kidney Stones, No Change in vision, No Insomnia, No Difficulty with memory/speech, No Numbness in hands/feet, No New onset severe fatigue, No Nausea/vomiting, No Constipation and No Depressed mood Are there any side effects interfering with quality of life enough you would want to stop medication?: No What's improved for you since losing weight and making your lifestyle change?: Need to continue taking intermittently when body reacts negatively Is there anything else we can help you with on your weight loss journey today?: No 01/11/24 1204 Date Lynn Paulino MD [facility] Signature: Date (if applicable) CC: Normal [facility] Hall Tender Office Visit Reporton 12-13-2023 Hall Tender Office Visit Report [facility] [address], [address] [place] [address] OFFICE VISIT Date of Service: 12/13/23 MR#: [id number] Acct: [id number] Name: SHE AGUILAR Rep #: [id number] : 1985 Provider: Dr. Lynn perry MD Age/Sex: 38/F Location[place] [facility] [place] [facility] [place] Status: Signed Intake Vital Signs 10/17/23 13:48 11/15/23 15:34 12/13/23 13:28 Height 5 ft 7 in 5 ft 7 in 5 ft 7 in Weight: 227 lb BMI 35.5 BP 130/82 H 136/88 H Pulse 87 Intake Visit Reasons: 2 M FU Commercial Insulator Required: No Is patient in pain?: No Allergies No Known Allergies Allergy (Unverified 12/13/23 13:34) Medications ???Medication ???Instructions ???Recorded ???Confirmed ???Type multivitamin 1 tab PO DAILY 08/24/23 12/13/23 History multivitamin no.47-iron fum 27 1 cap PO DAILY 08/24/23 12/13/23 History mg-folate no.1 1 mg-dha 300 mg capsule (PNV-DHA) topiramate 25 mg tablet (Topamax) 25 mg PO DAILY 10/17/23 12/13/23 History phentermine 37.5 mg tablet 37.5 mg PO QDAY #30 tabs 11/15/23 12/13/23 Rx (Adipex-P) Last Menstrual Period: 01/01/23 Zika: Zika virus screening: Negative : No Have you fallen in the past year?: No Nurse's Note: Weight was enter incorrectly last visit. Patient was 233lbs on 11/14. Today she is down 6lbs. PFSH PFSH Medical History ADD (attention deficit disorder) Gestational HTN H/O abnormal cervical Papanicolaou smear Gestational hypertension Surgical History Outlook teeth extracted No significant past surgical history Family History (Updated 08/24/23 @ 09:59 by Fatimah Vance, RN) Father CAD (coronary artery disease) Myocardial infarction Other Heart disease Palpitations Social History adopted: No household members: family number of children: 2 current occupational status: employed current occupation: [employer] Smoking Status: Former smoker second hand exposure: No alcohol intake: current alcohol intake frequency: a few times a week substance use type: does not use caffeine: Yes Type: coffee Number of servings: 1 what type of physical activity do you participate in: walking seatbelt use: always do you feel safe at home: Yes additional social history: Spouse Tomasz caldwell History 3 Elective abortions Hx Para 3 Spontaneous abortions Hx # Term Pregnancies Ectopic pregnancies Hx # Pregnancies Multiple births # of living children 3 Past Pregnancies Del. Date Name GA/Weeks Outcome Route Bth Weight Infant Gen Labor Lgth Anesthesia Del Locatn Provider FOB 03/14/15 Tip 40 live - full term 8lbs 6oz Male 26 hours epidural [facility] SYLVIE 08/19/17 Ray 39 live - full term 9lbs Male 9hours epidural [facility] SYLVIE 11/29/20 Yani 40 live - full term Female [facility] Dr. Norris Delivery Date: 03/14/15 Last Updated by: Netta Quiroz [facility]; 1st degree laceration Delivery Date: 08/19/17 Last Updated by: Netta Quiroz AMARIS Delivery Date: 11/29/20 Last Updated by: Jasmina Perez mild dystocia, manual extraction of placenta HPI 2 M FU Details: SHE AGUILAR is a 38 year old Female presenting for a weight management follow up doing well 17 lbs lost total, some anxiety intermittently with full tab, will stick with 1/2 tab. discussed stopping phentermine while on menses and taking adderall, pcp suggested to help with adhd symptoms. consistent with PE. see weight management questionnaire answers for additional HPI details. all information was reviewed with the patient and confirmed, relevant counseling provided, and any changes to treatment plan made. Female Reproductive History Last Menstrual Period: 01/01/23 ROS Const Reports as per HPI, Denies difficulty sleeping, Denies excessive sweating, Denies fatigue (new onset severe) and Denies fever(s) Eyes Denies change in vision and Denies diplopia ENT Denies dizziness Card Denies chest pain, Denies dyspnea, Denies dyspnea on exertion, Denies palpitations and Denies rapid heart rate Resp Denies dyspnea and Denies dyspnea on exertion GI Reports as per HPI, Denies abdominal pain and Denies constipation Musc Denies numbness Neuro No confusion, No dizziness, No memory loss and No numbness Psych Denies confusion, Denies depression, Denies memory loss, Denies mood swings and Denies suicidal ideation Endo Denies excessive sweating, Denies fatigue (new onset severe), Denies palpitations and Reports other (denies symptoms of hypoglycemia) Exam Const General: cooperative, healthy appearing, comfortable and no acute distress Orientation: alert H (more content not included)... Normal [facility] Hall Tender Office Visit Reporton 11-15-2023 Hall Tender Office Visit Report [facility] [address] [place] [address], [address] [place] [address] OFFICE VISIT Date of Service: 11/15/23 MR#: [id number] Acct: [id number] Name: SHE AGUILAR Rep #: [id number] : 1985 Provider: Dr. Lynn perry MD Age/Sex: 38/F Location[place] [facility] [place] Status: Signed Intake Vital Signs 10/17/23 13:48 11/15/23 11:44 11/15/23 11:50 11/15/23 15:34 Height 5 ft 7 in 5 ft 7 in 5 ft 7 in Weight: 241 lb 223 lb BMI 37.7 34.9 BP 118/77 137/85 H 130/82 H 130/82 H Pulse 83 118 H 78 Intake Visit Reasons: WT CHK Allergies No Known Allergies Allergy (Unverified 10/17/23 14:01) Medications ???Medication ???Instructions ???Recorded ???Confirmed ???Type multivitamin 1 tab PO DAILY 08/24/23 11/15/23 History multivitamin no.47-iron fum 27 1 cap PO DAILY 08/24/23 11/15/23 History mg-folate no.1 1 mg-dha 300 mg capsule (PNV-DHA) topiramate 25 mg tablet (Topamax) 25 mg PO DAILY 10/17/23 11/15/23 History phentermine 37.5 mg tablet 37.5 mg PO QDAY #30 tabs 11/15/23 11/15/23 Rx (Adipex-P) Last Menstrual Period: 01/01/23 Zika: Zika virus screening: Negative : No Have you fallen in the past year?: No PFSH PFSH Medical History ADD (attention deficit disorder) Gestational HTN H/O abnormal cervical Papanicolaou smear Gestational hypertension Surgical History Outlook teeth extracted No significant past surgical history Family History (Updated 08/24/23 @ 09:59 by Fatimah Vance, RN) Father CAD (coronary artery disease) Myocardial infarction Other Heart disease Palpitations Social History adopted: No household members: family number of children: 2 current occupational status: employed current occupation: [employer] Smoking Status: Former smoker second hand exposure: No alcohol intake: current alcohol intake frequency: a few times a week substance use type: does not use caffeine: Yes Type: coffee Number of servings: 1 what type of physical activity do you participate in: walking seatbelt use: always do you feel safe at home: Yes additional social history: Spouse Tomasz caldwell History 3 Elective abortions Hx Para 3 Spontaneous abortions Hx # Term Pregnancies Ectopic pregnancies Hx # Pregnancies Multiple births # of living children 3 Past Pregnancies Del. Date Name GA/Weeks Outcome Route Bth Weight Gen Labor Lgth Anesthesia Del Locatn Provider FOB 03/14/15 Tip 40 live - full term 8lbs 6oz Male 26 hours epidural [facility] SYLVIE 08/19/17 Ray 39 live - full term 9lbs Male 9hours epidural [facility] SYLVEI 11/29/20 Yani 40 live - full term Female [facility] Dr. Norris Delivery Date: 03/14/15 Last Updated by: Netta SO; 1st degree laceration Delivery Date: 08/19/17 Last Updated by: Netta SO Delivery Date: 11/29/20 Last Updated by: Jasmina Perez mild dystocia, manual extraction of placenta HPI WT CHK Details: SHE AGUILAR is a 38 year old Female presenting for a weight management fu. she is feeling the difference of the full tab and having reduced cravings, reduced hunger, improved satiety, no side effects. she is staying within goals. see weight management questionnaire answers for additional HPI details. all information was reviewed with the patient and confirmed, relevant counseling provided, and any changes to treatment plan made. Female Reproductive History Last Menstrual Period: 01/01/23 ROS Const Reports as per HPI, Denies difficulty sleeping, Denies excessive sweating, Denies fatigue (new onset severe) and Denies fever(s) Eyes Denies change in vision and Denies diplopia ENT Denies dizziness Card Denies chest pain, Denies dyspnea, Denies dyspnea on exertion, Denies palpitations and Denies rapid heart rate Resp Denies dyspnea and Denies dyspnea on exertion GI Reports as per HPI, Denies abdominal pain and Denies constipation Musc Denies numbness Neuro No confusion, No dizziness, No memory loss and No numbness Psych Denies confusion, Denies depression, Denies memory loss, Denies mood swings and Denies suicidal ideation Endo Denies excessive sweating, Denies fatigue (new onset severe), Denies palpitations and Reports other (denies symptoms of hypoglycemia) Exam Const General: cooperative, healthy appearing, comfortable and no acute distress Orientation: alert [facility] Head: normal to inspection and normocephalic Eyes General: appearance normal, both eyes and all related structures Neck Neck: normal visual inspection, no lymphadenopathy and t (more content not included)... Normal [facility] Echo Complete W/ Contraston 10-28-2023 Echo Complete W/ Contrast [facility] [address] [place] [address] Echo Complete W/ Contrast 10/28/23 1259 MR#: [id number] Acct: [id number] Name: SHE AGUILAR Rep #: [id number] : 1985 38 From: Aysha Finn MD Attending Dr: Dr. Aysha Finn MD Status: REG CLI Ordering Dr: Aysha Finn MD Date: 10/28/23 Location: [facility] Sex: F C Admitted: Reason For Study: Abnormal EKG Procedure This was a 2D Doppler, Color Flow transthoracic echocardiogram. Contrast injection was performed. Exam performed in department. Left Ventricle Normal size and thickness. The left ventricular ejection fraction is 55 %. Normal diastololic function. Right Ventricle Normal right ventricle. Atria The left and right atria are normal. Mitral Valve Trivial mitral valve insufficiency. Tricuspid Valve Trivial tricuspid valve insufficiency. Normal pulmonary artery pressure. Aortic Valve Trisinus/trileaflet aortic valve. Pulmonic Valve The pulmonic valve is not well visualized. Great Vessels Normal sized aortic root. Pericardium/Pleural No pericardial effusion. Medication 22 gauge I.V. with prn adaptor inserted into right arm. Diluted definity 3.5ml given slow IV push to enhance endocardial definition. MMode/2D Measurements Calculations LVIDd: 5.0 cm IVSd: 0.88 cm Ao root diam: 3.2 cm LVIDs: 3.5 cm LVPWd: 0.74 cm LA dimension: 3.5 cm FS: 31.0 % LAV(MOD-bp): 51.3 ml LVAd ap4: 38.8 cm2 SV(MOD-sp4): 72.4 ml LAV(MOD-bp) Indexed: 23.1 ml/m2 LVLd ap4: 8.5 cm LAV(MOD-sp2): 57.1 ml EDV(MOD-sp4): 142.6 ml LAV(MOD-sp4): 40.6 ml EDV(sp4-el): 149.3 ml LVAs ap4: 24.7 cm2 LVLs ap4: 7.1 cm ESV(MOD-sp4): 70.2 ml ESV(sp4-el): 72.5 ml EF(MOD-sp4): 50.8 % EF(sp4-el): 51.5 % SV(sp4-el): 76.8 ml LA A4 area: 16.6 cm2 RA A4 area: 14.9 cm2 TAPSE: 1.9 cm Time Measurements MV dec time: 0.20 sec Doppler Measurements Calculations MV E max patrick: 67.2 cm/sec Lat Peak E' Patrick: 16.0 cm/sec Med Peak E' Patrick: 10.8 cm/sec MV A max patrick: 50.6 cm/sec E/E' lat: 4.2 E/E' med: 6.2 MV E/A: 1.3 MV V2 max: 75.0 cm/sec MV P1/2t max patrick: 75.2 cm/sec Ao V2 max: 104.0 cm/sec MV max P.3 mmHg MV P1/2t: 59.0 msec Ao max P.3 mmHg MV V2 mean: 44.0 cm/sec Ao V2 mean: 73.1 cm/sec MV mean P.92 mmHg MV dec slope: 373.6 cm/sec2 Ao mean P.4 mmHg MV V2 VTI: 18.6 cm MVA(P1/2t): 3.7 cm2 Ao V2 VTI: 23.5 cm AV (velocity ratio): 0.76 LV V1 max: 82.6 cm/sec PA V2 max: 71.4 cm/sec LV V1 max P.7 mmHg PA max PG (full): 0.65 mmHg PI dec slope: 182.6 cm/sec2 LV V1 mean P.6 mmHg PA V2 mean: 52.1 cm/sec LV V1 mean: 59.6 cm/sec PA mean PG (full): 0.42 mmHg LV V1 VTI: 18.0 cm TR max patrick: 221.6 cm/sec TR max P.6 mmHg ECHO/Echo Complete W/ Contrast Interpretation Summary The left ventricular ejection fraction is 55 %. Ordering Physician: Aysha Finn Referring Physician: Shalom Hurst MD Performed By: Romain Escalera RCS 10/29/23 1049 Date Aysha Finn MD CC: Dr. Aysha Finn MD; Dr. Shalom Husrt MD Date Dictated: 10/28/23 1259 Date Transcribed: 10/29/23 1049 Finisher Fine Diamond Dies: Signed Normal [facility] Hall Tender Office Visit Reporton 10-17-2023 Hall Tender Office Visit Report [facility] [place] [address] [address] [place] [address] OFFICE VISIT Date of Service: 10/17/23 MR#: [id number] Acct: [id number] Name: AGUILARSHE LEE Rep #: [id number] : 1985 Provider: Dr. Lynn perry MD Age/Sex: 38/F Location[place] [facility] [place] [facility] [place] Status: Signed Intake Vital Signs 07/19/23 10:24 08/24/23 09:43 10/17/23 13:48 Height 5 ft 7 in 5 ft 7 in 5 ft 7 in Weight: 241 lb BMI 37.7 BP 118/77 Pulse 83 Intake Visit Reasons: 3 MO FU Commercial Insulator Required: No Is patient in pain?: No Allergies No Known Allergies Allergy (Unverified 10/17/23 14:01) Medications ???Medication ???Instructions ???Recorded ???Confirmed ???Type multivitamin 1 tab PO DAILY 08/24/23 10/17/23 History multivitamin no.47-iron fum 27 1 cap PO DAILY 08/24/23 10/17/23 History mg-folate no.1 1 mg-dha 300 mg capsule (PNV-DHA) phentermine 37.5 mg tablet 37.5 mg PO QDAY #30 tabs 10/17/23 10/17/23 Rx (Adipex-P) topiramate 25 mg tablet (Topamax) 25 mg PO DAILY 10/17/23 10/17/23 History Last Menstrual Period: 01/01/23 Zika: Zika virus screening: Negative : No Have you fallen in the past year?: No PFSH PFSH Medical History ADD (attention deficit disorder) Gestational HTN H/O abnormal cervical Papanicolaou smear Gestational hypertension Surgical History Outlook teeth extracted No significant past surgical history Family History (Updated 08/24/23 @ 09:59 by Fatimah Vance) Father CAD (coronary artery disease) Myocardial infarction Other Heart disease Palpitations Social History adopted: No household members: family number of children: 2 current occupational status: employed current occupation: [employer] Smoking Status: Former smoker second hand exposure: No alcohol intake: current alcohol intake frequency: a few times a week substance use type: does not use caffeine: Yes Type: coffee Number of servings: 1 what type of physical activity do you participate in: walking seatbelt use: always do you feel safe at home: Yes additional social history: Spouse Tomasz caldwell History 3 Elective abortions Hx Para 3 Spontaneous abortions Hx # Term Pregnancies Ectopic pregnancies Hx # Pregnancies Multiple births # of living children 3 Past Pregnancies Del. Date Name GA/Weeks Outcome Route Bth Weight Gen Labor Lgth Anesthesia Del Locatn Provider FOB 03/14/15 Tip 40 live - full term 8lbs 6oz Male 26 hours epidural [facility] SYLVIE 08/19/17 Ray 39 live - full term 9lbs Male 9hours epidural [facility] SYLVIE 11/29/20 Yani 40 live - full term Female [facility] Dr. Norris Delivery Date: 03/14/15 Last Updated by: [facility]entz [facility]; 1st degree laceration Delivery Date: 08/19/17 Last Updated by: Netta SO Delivery Date: 11/29/20 Last Updated by: Jasmina Perez mild dystocia, manual extraction of placenta HPI 3 MO FU Details: SHE AGUILAR is a 38 year old Female presenting for a weight management follow up, doing well now she increased to a full tab, reduced hunger. she wants to switch nutritional plans she thinks she is going over calories on weight watchers. increased protein intake, increasing activity. see weight management questionnaire answers for additional HPI details. all information was reviewed with the patient and confirmed, relevant counseling provided, and any changes to treatment plan made. Female Reproductive History Last Menstrual Period: 01/01/23 ROS Const Reports as per HPI, Denies difficulty sleeping, Denies excessive sweating, Denies fatigue (new onset severe) and Denies fever(s) Eyes Denies change in vision and Denies diplopia ENT Denies dizziness Card Denies chest pain, Denies dyspnea, Denies dyspnea on exertion, Denies palpitations and Denies rapid heart rate Resp Denies dyspnea and Denies dyspnea on exertion GI Reports as per HPI, Denies abdominal pain and Denies constipation Musc Denies numbness Neuro No confusion, No dizziness, No memory loss and No numbness Psych Denies confusion, Denies depression, Denies memory loss, Denies mood swings and Denies suicidal ideation Endo Denies excessive sweating, Denies fatigue (new onset severe), Denies palpitations and Reports other (denies symptoms of hypoglycemia) Exam Const General: cooperative, healthy appearing, comfortable and no acute distress Orientation: alert HENND Head: normal to inspection and normocephalic Eyes General: appearance normal, both eyes and all related structures Neck Neck: n (more content not included)... Normal [facility] 12 Lead E[place] [facility] [place]-2023 12 Lead EKG performed by [facility] [address] [place] [address] 12 Lead EKG performed by [facility] 08/24/23 0956 MR#: [id number] Acct: [id number] Name: SHE AGUILAR Rep #: [id number] : 1985 37 From: Aysha Finn MD Attending Dr: Dr. Aysha Finn MD Status: DEP AMB Ordering Dr: Aysha Finn MD Date: 08/24/23 [place] [facility] Sex: F C Admitted: BMS/12 Lead EKG performed by [facility] ECG Report Interpretation --Sinus Rhythm WITHIN NORMAL LIMITSElectronically signed on 04/02/2024 at 10:[address] Aysha Finn [employer] Version 8610 04/02/24 1014 Date Aysha Finn MD CC: Dr. Shalom Hurst MD Date Dictated: 08/24/23955 Date Transcribed: 08/24/23955 Finisher Fine Diamond Dies: DMITRIY Signed Normal [facility] Cardiology Visit Reporton Cardiology Visit Report [facility] [address] [place] [address] OFFICE VISIT Date of Service: 08/24/23 MR#: [id number] Acct: [id number] Name: SHE AGUILAR Rep #: [id number] : 1985 Provider: Dr. Aysha Finn MD Age/Sex: 37/F [place] [facility] Status: Signed [facility] History of Present Illness Details: This lady has past medical history significant for attention deficit disorder and obesity. She was getting weight loss therapy with her doctor. As part of the protocol, an ECG was done. It was interpreted as abnormal. Subsequently she has been referred to us. Patient denies any chest pains either at rest or with exertion. No shortness of breath. No orthopnea. No PND. No ankle edema. No palpitations. According to her, she feels a little weird in her chest for a brief second whenever she is stressed. No history of syncope or presyncope except that she passed out when she was in labor. Intake Vital Signs 07/19/23 10:24 08/24/23 09:43 Height 5 ft 7 in 5 ft 7 in Weight: 245 lb 243 lb BMI 38.3 38.0 BP 131/88 H 124/87 H Blood Pressure Location Lt brachial Position Sitting Respiration 16 Pulse 90 Pulse Source Monitor Intake Visit Reasons: ABN EKG ([place]) Commercial Insulator Required: No Accompanied by: Self Is patient in pain?: No Allergies No Known Allergies Allergy (Unverified 08/24/23 09:47) Medications ???Medication ???Instructions ???Recorded ???Confirmed ???Type dextroamphetamine-amphet amine 10 1 tab PO QDAY 08/24/23 08/24/23 History mg tablet dextroamphetamine-amphet amine ER 1 cap PO QDAY 08/24/23 08/24/23 History 20 mg 24hr capsule,extend release multivitamin 1 tab PO DAILY 08/24/23 08/24/23 History multivitamin no.47-iron fum 27 1 cap PO DAILY 08/24/23 08/24/23 History mg-folate no.1 1 mg-dha 300 mg capsule (PNV-DHA) PFSH Medical History ADD (attention deficit disorder) Gestational HTN H/O abnormal cervical Papanicolaou smear Gestational hypertension Surgical History Outlook teeth extracted No significant past surgical history Family History (Updated 08/24/23 @ 09:59 by Fatimah Vance) Father CAD (coronary artery disease) Myocardial infarction Other Heart disease Palpitations Social History adopted: No household members: family number of children: 2 current occupational status: employed current occupation: [employer] Smoking Status: Former smoker second hand exposure: No alcohol intake: current alcohol intake frequency: a few times a week substance use type: does not use caffeine: Yes Type: coffee Number of servings: 1 what type of physical activity do you participate in: walking seatbelt use: always do you feel safe at home: Yes additional social history: Spouse Tomasz caldwell ROS Const Const: Negative for fatigue, weakness, headache(s), frequent falls, difficulty sleeping or excessive sweating Eyes Eyes: Negative for loss of peripheral vision, transient loss of vision, blurry vision, double vision or tunnel vision ENT ENT: Negative for headache(s), dizziness, Nosebleed/epistaxis or balance problems Cardio Chest Pain: No Palpitations: Yes (more with stress) feels like its: irregular Edema: None Muscle aches with walking: None Resp Respiratory: Negative for SOB with activity, SOB at rest, SOB orthopnea SOB lying down, Cough or paroxysmal nocturnal dyspnea GI GI: Negative nausea, vomiting, heartburn or black,tarry stools : Negative for hematuria Musc Musc: Negative for muscle aches/ myalgia, muscle weakness, joint pain or balance problems Skin Skin: Negative non-healing lesions, rash or unusual bruising Neuro Neuro: Negative for dizziness, lightheadedness, near syncope, syncope, frequent falls, headache(s), weakness, blurry vision, double vision or lack of coordination Rubén Hematologic/Lymphatic: Negative for easy bleeding or easy bruising Endo Endo: Negative for fatigue, excessive sweating or increased thirst/drinking Psych Psych: Positive for anxiety; Negative for depression Allergy Allergy/Immunology: Negative for hives and Negative for rash Cardiology Exam Const Appearance: comfortable and no acute distress Nutritional Appearance: obese Neck Neck: no JVD Carotids: Negative bruit Chest Auscultation: Bilateral: Clear to Auscultation Cardio Rate: regular rate Rhythm: regular rhythm Heart sounds: S1 normal and S2 normal GI GI: obese Neuro General: patient alert, patient awake and patient oriented x3 Extremities Lower Extremity Edema: None: Bilateral Supplemental Info Supplemental Information Labs: LDL Choles (more content not included)... Normal [facility] 12 Lead EKGon 07-22-2023 12 Lead EKG [facility] [address] [place] [address] 12 Lead EKG 07/22/23 0729 MR#: [id number] Acct: [id number] Name: SHE AGUILAR Rep #: [id number] : 1985 37 From: Wenceslao Acosta MD Attending Dr: Dr. Lynn Paulino MD Status: REG CLI Ordering Dr: Lynn Paulino MD Date: 07/22/23 Location: [facility] Sex: F C Admitted: Test Reason : OBSETITY Blood Pressure : / mmHG Vent. Rate : 073 BPM Atrial Rate : 073 BPM P-R Int : 124 ms QRS Dur : 080 ms QT Int : 364 ms P-R-T Axes : 036 044 045 degrees QTc Int : 401 ms Normal sinus rhythm with sinus arrhythmia Low voltage QRS Borderline ECG Confirmed by Wenceslao Acosta ([id number]), society editor NIMO ROGERS ([id number]) on 07/25/2023 8:40:11 AM Referred By: Lynn Paulino Confirmed By:Wenceslao Acosta 07/25/23 0840 Date Wenceslao Acosta MD CC: Dr. Shalom Hurst MD; Dr. Lynn Paulino MD Signed Normal [facility] CBC W/Diff, Automatedon 05- Absolute Lymph 1.23 X10 3/uL Normal 0.83-4.51 [facility] Comment on above: Performed By: #### L 500.4050, L500.4100, L501.9985, L100.0100, L506.1000, L501.9520 #### [facility] [address] [place], [address] Absolute Neut 2.4 X10 3/uL Normal 2.0-7.7 [facility] Comment on above: Performed By: #### L 500.4050, L500.4100, L501.9985, L100.0100, L506.1000, L501.9520 #### [facility] [address] [place], [address] Basophils/100 WBC (Bld) 0.5 % Normal 0-1 [facility] Comment on above: Performed By: #### L 500.4050, L500.4100, L501.9985, L100.0100, L506.1000, L501.9520 #### [facility] [address] [place], [address] Eosinophils/100 WBC (Bld) 2.3 % Normal 0-5 [facility] Comment on above: Performed By: #### L 500.4050, L500.4100, L501.9985, L100.0100, L506.1000, L501.9520 #### [facility] [address] [place], [address] Erythrocyte distribution width (RBC) [Ratio] 13.5 % Normal 11.6-14.6 [facility] Comment on above: Performed By: #### L 500.4050, L500.4100, L501.9985, L100.0100, L506.1000, L501.9520 #### [facility] [address] [place], [address] Hematocrit (Bld) [Volume fraction] 41.9 % Normal 37-47 [facility] Comment on above: Performed By: #### L 500.4050, L500.4100, L501.9985, L100.0100, L506.1000, L501.9520 #### [facility] [address] [place], [address] Hemoglobin (Bld) [Mass/Vol] 13.1 g/dL Normal 12.0-15.0 [facility] Comment on above: Performed By: #### L 500.4050, L500.4100, L501.9985, L100.0100, L506.1000, L501.9520 #### [facility] [address] [place], [address] IG% 0.300 Normal 0.0-0.9 [facility] Comment on above: Result Comment: IG% - Immature Granulocytes (promyelocytes, myelocytes and metamyelocytes) > 1% indicates that a LEFT SHIFT is Present. Performed By: #### L 500.4050, L500.4100, L501.9985, L100.0100, L506.1000, L501.9520 #### [facility] [address] [place], [address] Lymphocytes/100 WBC (Bld) 30.8 % Normal 19-41 [facility] Comment on above: Performed By: #### L 500.4050, L500.4100, L501.9985, L100.0100, L506.1000, L501.9520 #### [facility] [address] [place], [address] MCH (RBC) [Entitic mass] 28.2 pg Normal 27.0-32.0 [facility] Comment on above: Performed By: #### L 500.4050, L500.4100, L501.9985, L100.0100, L506.1000, L501.9520 #### [facility] [address] [place], [address] MCHC (RBC) [Mass/Vol] 31.3 g/dL Low 32-36 [facility] Comment on above: Performed By: #### L 500.4050, L500.4100, L501.9985, L100.0100, L506.1000, L501.9520 #### [facility] [address] [place], [address] MCV (RBC) [Entitic vol] 90.1 fL Normal 81-99 [facility] Comment on above: Performed By: #### L 500.4050, L500.4100, L501.9985, L100.0100, L506.1000, L501.9520 #### [facility] [address] [place], [address] Monocytes/100 WBC (Bld) 5.8 % Normal 0-10 [facility] Comment on above: Performed By: #### L 500.4050, L500.4100, L501.9985, L100.0100, L506.1000, L501.9520 #### [facility] [address] [place], [address] Neutrophils/100 WBC (Bld) 60.3 % Normal 47-70 [facility] Comment on above: Performed By: #### L 500.4050, L500.4100, L501.9985, L100.0100, L506.1000, L501.9520 #### [facility] [address] [place], [address] Nucleated RBC (Bld) [#/Vol] 0 10*3/uL Normal 0-5 [facility] Comment on above: Performed By: #### L 500.4050, L500.4100, L501.9985, L100.0100, L506.1000, L501.9520 #### [facility] [address] [place], [address] Platelet mean volume (Bld) [Entitic vol] 9.7 fL Normal 6.2-12.0 [facility] Comment on above: Performed By: #### L 500.4050, L500.4100, L501.9985, L100.0100, L506.1000, L501.9520 #### [facility] [address] [place], [address] Platelets (Bld) [#/Vol] 270 10*3/uL Normal 150-450 [facility] Comment on above: Performed By: #### L 500.4050, L500.4100, L501.9985, L100.0100, L506.1000, L501.9520 #### [facility] [address] [place], [address] RBC (Bld) [#/Vol] 4.65 10*6/uL Normal 4.2-5.4 [facility] Comment on above: Performed By: #### L 500.4050, L500.4100, L501.9985, L100.0100, L506.1000, L501.9520 #### [facility] [address] [place], [address] RDW SD 44.2 fl High 35.1-43.9 [facility] Comment on above: Performed By: #### L 500.4050, L500.4100, L501.9985, L100.0100, L506.1000, L501.9520 #### [facility] [address] [place], [address] WBC (Bld) [#/Vol] 4.0 10*3/uL Low 4.4-11.0 [facility] Comment on above: Performed By: #### L 500.4050, L500.4100, L501.9985, L100.0100, L506.1000, L501.9520 #### [facility] [address] [place], [address] [facility]-2023 Albumin [Mass/Vol] 3.8 g/dL Normal 3.2-5.0 [facility] Comment on above: Performed By: #### L 500.4050, L500.4100, L501.9985, L100.0100, L506.1000, L501.9520 ####[facility] [address] [place], [address] Albumin/Globulin [Mass ratio] 1.1 {ratio} Normal 0.9-2.4 [facility] Comment on above: Performed By: #### L 500.4050, L500.4100, L501.9985, L100.0100, L506.1000, L501.9520 ####[facility] [address] [place], [address] ALK P 59 U/L Normal 45-117 [facility] Comment on above: Performed By: #### L 500.4050, L500.4100, L501.9985, L100.0100, L506.1000, L501.9520 ####[facility] [address] [place], [address] ALT [Catalytic activity/Vol] 20 U/L Normal 13-56 [facility] Comment on above: Performed By: #### L 500.4050, L500.4100, L501.9985, L100.0100, L506.1000, L501.9520 ####[facility] [address] [place], [address] AST [Catalytic activity/Vol] 11 U/L Low 15-37 [facility] Comment on above: Performed By: #### L 500.4050, L500.4100, L501.9985, L100.0100, L506.1000, L501.9520 ####[facility] [address] [place], [address] Bilirubin [Mass/Vol] 0.30 mg/dL Normal 0.20-1.00 [facility] Comment on above: Result Comment: For patients on eltrombopag therapy, use of Dimension Arthur TBIL is not recommended. Performed By: #### L 500.4050, L500.4100, L501.9985, L100.0100, L506.1000, L501.9520 ####[facility] [address] [place], [address] BUN/CRE 21.7 RATIO High 10-20 [facility] Comment on above: Performed By: #### L 500.4050, L500.4100, L501.9985, L100.0100, L506.1000, L501.9520 ####[facility] [address] [place], [address] CA,Total 9.0 mg/dL Normal 8.5-10.1 [facility] Comment on above: Performed By: #### L 500.4050, L500.4100, L501.9985, L100.0100, L506.1000, L501.9520 ####[facility] [address] [place], [address] Chloride [Moles/Vol] 107 mmol/L Normal 98-107 [facility] Comment on above: Performed By: #### L 500.4050, L500.4100, L501.9985, L100.0100, L506.1000, L501.9520 ####[facility] [address] [place], [address] CO2 [Moles/Vol] 29.0 mmol/L Normal 21.0-32.0 [facility] Comment on above: Performed By: #### L 500.4050, L500.4100, L501.9985, L100.0100, L506.1000, L501.9520 ####[facility] [address] [place], [address] Creatinine [Mass/Vol] 0.64 mg/dL Normal 0.55-1.02 [facility] Comment on above: Result Comment: The validity of the calculated GFR GFRAA in patients over 70 years has not been determined. Clinical correlation is essential. Performed By: #### L 500.4050, L500.4100, L501.9985, L100.0100, L506.1000, L501.9520 ####[facility] [address] [place], [address] EST GFR - AA 133 mL/min Normal >60 [facility] Comment on above: Result Comment: Afri can Mosotho GFR Calc Performed By: #### L 500.4050, L500.4100, L501.9985, L100.0100, L506.1000, L501.9520 ####[facility] [address] [place], [address] GAP 3 Low 5-15 [facility] Comment on above: Performed By: #### L 500.4050, L500.4100, L501.9985, L100.0100, L506.1000, L501.9520 ####[facility] [address] [place], [address] GFR/1.73 sq M.predicted among non-blacks MDRD (S/P/Bld) [Vol rate/Area] 110 mL/min/{1.73_m2} Normal >60 [facility] Comment on above: Result Comment: Non- GFR Calc Performed By: #### L 500.4050, L500.4100, L501.9985, L100.0100, L506.1000, L501.9520 ####[facility] [address] [place], [address] Globulin (S) [Mass/Vol] 3.5 g/dL Normal 2.2-4.2 [facility] Comment on above: Performed By: #### L 500.4050, L500.4100, L501.9985, L100.0100, L506.1000, L501.9520 ####[facility] [address] [place], [address] Glucose [Mass/Vol] 88 mg/dL Normal 74-106 [facility] Comment on above: Performed By: #### L 500.4050, L500.4100, L501.9985, L100.0100, L506.1000, L501.9520 ####[facility] [address] [place], [address] Potassium [Moles/Vol] 4.2 mmol/L Normal 3.5-5.1 [facility] Comment on above: Performed By: #### L 500.4050, L500.4100, L501.9985, L100.0100, L506.1000, L501.9520 ####[facility] [address] [place], [address] Sodium [Moles/Vol] 139 mmol/L Normal 136-145 [facility] Comment on above: Performed By: #### L 500.4050, L500.4100, L501.9985, L100.0100, L506.1000, L501.9520 ####[facility] [address] [place], [address] T PROT 7.3 g/dL Normal 6.4-8.2 [facility] Comment on above: Performed By: #### L 500.4050, L500.4100, L501.9985, L100.0100, L506.1000, L501.9520 ####[facility] [address] [place], [address] Urea nitrogen [Mass/Vol] 14 mg/dL Normal 7-18 [facility] Comment on above: Performed By: #### L 500.4050, L500.4100, L501.9985, L100.0100, L506.1000, L501.9520 ####[facility] [address] [place], [address] Hemoglobin A1con 07-20-2023 HbA1c (Bld) [Mass fraction] 5.0 % Normal 3.8-5.6 [facility] Comment on above: Result Comment: Norm al < 5.7 % Prediabetic 5.7 - 6.4 % Diabetic >or= 6.5 % Please note range changes. Performed By: #### L 500.4050, L500.4100, L501.9985, L100.0100, L506.1000, L501.9520 ####[facility] [address] [place], [address] Lipid Profileon 07-20-2023 Cholesterol [Mass/Vol] 210 mg/dL High 200 [facility] Comment on above: Result Comment: <200 mg/dL Desirable 200-240 mg/dL Borderline >240 mg/dL High Risk Performed By: #### L 500.4050, L500.4100, L501.9985, L100.0100, L506.1000, L501.9520 ####[facility] [facility] [address] [place], [address] Cholesterol in HDL [Mass/Vol] 61 mg/dL Normal [facility] Comment on above: Result Comment: The drugs N-Acetylcysteine and Metamizole may falsely depress this assay. Reference Range HDL <40 mg/dL Low HDL Cholesterol HDL >or= 60 mg/dL High HDL Cholesterol Performed By: #### L 500.4050, L500.4100, L501.9985, L100.0100, L506.1000, L501.9520 ####[facility] [address] [place], [address] Cholesterol in LDL [Mass/Vol] 138 mg/dL High 0-130 [facility] Comment on above: Performed By: #### L 500.4050, L500.4100, L501.9985, L100.0100, L506.1000, L501.9520 ####[facility] [address] [place], [address] Cholesterol in VLDL [Mass/Vol] 11 mg/dL Normal 5-40 [facility] Comment on above: Performed By: #### L 500.4050, L500.4100, L501.9985, L100.0100, L506.1000, L501.9520 ####[facility] [address] [place], [address] Triglyceride [Mass/Vol] 56 mg/dL Normal [facility] Comment on above: Result Comment: The drugs N-Acetylcysteine and Metamizole may falsely depress this assay. Serum Triglycerides Reference Interval Normal <150 mg/dL Borderline high 150 - 199 mg/dL High 200 - 499 mg/dL Very High > or = 500 mg/dL Performed By: #### L 500.4050, L500.4100, L501.9985, L100.0100, L506.1000, L501.9520 ####[facility] [address] [place], [address] Thyroid Stim Hormone (TSH)on 07-20-2023 TSH 1.95 uIU/mL Normal 0.358-3.74 [facility] Comment on above: Performed By: #### L 500.4050, L500.4100, L501.9985, L100.0100, L506.1000, L501.9520 ####[facility] [address] [place], [address] Vitamin D,25 Hydroxyon 07-19 Vitamin D 25-OH 33.4 ng/mL Normal [facility] Comment on above: Result Comment: Jolene min D 25(OH) Status Range Deficiency <20 ng/mL (50nmol/L) Insufficiency 20 - 30 ng/mL (50 - 75 nmol/L) Sufficiency 30 - 100 ng/mL (75 - 250 nmol/L) Toxicity >100 ng/mL (>250 nmol/L) Performed By: #### L 500.4050, L500.4100, L501.9985, L100.0100, L506.1000, L501.9520 ####[facility] [address] [place], [address] [facility] Office Visit Reporton 07-19-2023 [facility] Office Visit Report [facility] [address] [place] [address] OFFICE VISIT Date of Service: 07/19/23 MR#: [id number] Acct: [id number] Name: SHE AGUILAR SENG Rep #: [id number] : 1985 Provider: Dr. Lynn perry MD Age/Sex: 37/F Location[place] [facility] [place] [facility] [place] Status: Signed Intake Vital Signs 01/17/23 16:16 07/19/23 10:24 07/19/23 10:24 Height 5 ft 7 in 5 ft 7 in 5 ft 7 in Weight: 245 lb 245 lb BMI 38.3 38.3 BP 131/88 H Waist Circumference (inches) 3 ft 8 in Intake Visit Reasons: 1 M FU RESTART ADIPEX Commercial Insulator Required: No Is patient in pain?: No Allergies No Known Allergies Allergy (Unverified 07/19/23 10:28) Medications ???Medication ???Instructions ???Recorded ???Confirmed ???Type multivitamin no.47-iron fum 27 cap PO DAILY 04/15/20 07/19/23 History mg-folate no.1 1 mg-dha 300 mg capsule (PNV-DHA) phentermine 37.5 mg tablet 18.75 mg (1/2 x 37.5 mg) PO QDAY 07/19/23 07/19/23 Rx (Adipex-P) #16 tabs topiramate 25 mg tablet (Topamax) 25 mg PO BID #60 tabs 07/19/23 07/19/23 Rx Last Menstrual Period: 01/01/23 Zika: Zika virus screening: Negative : No PFSH PFSH Medical History Gestational HTN H/O abnormal cervical Papanicolaou smear Gestational hypertension Surgical History Outlook teeth extracted No significant past surgical history Social History adopted: No household members: family number of children: 2 current occupational status: employed current occupation: [employer] Smoking Status: Former smoker second hand exposure: No alcohol intake: never substance use type: does not use caffeine: Yes what type of physical activity do you participate in: walking seatbelt use: always do you feel safe at home: Yes additional social history: Spouse Tomasz construction History 3 Elective abortions Hx Para 3 Spontaneous abortions Hx # Term Pregnancies Ectopic pregnancies Hx # Pregnancies Multiple births # of living children 3 Past Pregnancies Del. Date Name GA/Weeks Outcome Route Bth Weight Gen Labor Lgth Anesthesia Del Locatn Provider FOB 03/14/15 Tip 40 live - full term 8lbs 6oz Male 26 hours epidural [facility] SYLVIE 08/19/17 Ray 39 live - full term 9lbs Male 9hours epidural [facility] SYLVIE 11/29/20 Yani 40 live - full term Female [facility] Dr. Norris Delivery Date: 03/14/15 Last Updated by: Netta SO; 1st degree laceration Delivery Date: 08/19/17 Last Updated by: Netta SO Delivery Date: 11/29/20 Last Updated by: Jasmina Perez mild dystocia, manual extraction of placenta HPI 1 M FU RESTART ADIPEX Details: SHE AGUILAR is a 37 year old Female presenting for a weight management consultation. She is here to reduce her weight because she wants to imrpove health reduce binge eating episodes, has had success in the past on adipex and weight watchers. see weight management questionnaire answers for additional HPI details. all information was reviewed with the patient and confirmed, relevant counseling provided, and any changes to treatment plan made. Female Reproductive History Last Menstrual Period: 01/01/23 ROS Const Reports as per HPI, Denies difficulty sleeping, Denies excessive sweating, Denies fatigue (new onset severe) and Denies fever(s) Eyes Denies change in vision and Denies diplopia ENT Denies dizziness Card Denies chest pain, Denies dyspnea, Denies dyspnea on exertion, Denies palpitations and Denies rapid heart rate Resp Denies dyspnea and Denies dyspnea on exertion GI Reports as per HPI, Denies abdominal pain and Denies constipation Musc Denies numbness Neuro No confusion, No dizziness, No memory loss and No numbness Psych Denies confusion, Denies depression, Denies memory loss, Denies mood swings and Denies suicidal ideation Endo Denies excessive sweating, Denies fatigue (new onset severe), Denies palpitations and Reports other (denies symptoms of hypoglycemia) Exam Const General: cooperative, healthy appearing, comfortable and no acute distress Orientation: alert HENMT Head: normal to inspection and normocephalic Eyes General: appearance normal, both eyes and all related structures Neck Neck: normal visual inspection, no lymphadenopathy and trachea midline Thyroid: thyroid normal Resp Effort Inspection: normal respiratory effort Auscultation: clear to auscultation bilaterally Cardio Rate: regular rate Rhythm: regular rhythm Heart Sounds: S1 normal and S2 normal Musc Other: gross motor intact no def (more content not included)... Normal [facility] Absolute lymphocyte counton 11-30-2021 Lymphocytes Auto (Unsp spec) [#/Vol] 1.27 10*3/uL 0.83-4.51 [facility] Work Phone: Basophil percentageon 2021 Basophils/100 WBC (Bld) 0.4 % 0-1 [facility] Work Phone: Bilirubin [Mass/Vol] 0.30 mg/dL 0.20-1.00 [facility] Work Phone: Comment on above: For patients on eltr ombopag therapy, use of Dimension Arthur TBIL is not recommended. Chloride [Moles/Vol] 105 mmol/L 98-107 [facility] Work Phone: Cholesterol [Mass/Vol] 185 mg/dL <200 [facility] Work Phone: Comment on above: <200 mg/dL Desirable 200-240 mg/dL Borderline >240 mg/dL High Risk Eosinophils/100 WBC (Bld) 0.8 % 0-5 [facility] Work Phone: Glucose [Mass/Vol] 82 mg/dL 74-106 [facility] Work Phone: Neutrophils (Bld) [#/Vol] 3.7 10*3/uL 2.0-7.7 [facility] Work Phone: Neutrophils/100 WBC (Bld) 70.1 % 47-70 [facility] Work Phone: Potassium [Moles/Vol] 3.8 mmol/L 3.5-5.1 [facility] Work Phone: Protein [Mass/Vol] 7.4 g/dL 6.4-8.2 [facility] Work Phone: Sodium [Moles/Vol] 139 mmol/L 136-145 [facility] Work Phone: Triglyceride [Mass/Vol] 37 mg/dL <199 [facility] Work Phone: Comment on above: The drugs N-Acetylcy steine and Metamizole may falsely depress this assay.Serum Triglycerides Reference Interval Normal <150 mg/dL Borderline high 150 - 199 mg/dL High 200 - 499 mg/dL Very High > or = 500 mg/dL WBC (Bld) [#/Vol] 5.3 10*3/uL 4.4-11.0 [facility] Work Phone: Blood erythrocytes count (nu mber/volume)on 11-30-2021 RBC (Bld) [#/Vol] 4.52 10*6/uL 4.2-5.4 [facility] Work Phone: Blood hemoglobin measurement (mass/volume)on 11-30-2021 Hemoglobin (Bld) [Mass/Vol] 13.2 g/dL 12.0-15.0 [facility] Work Phone: Blood lymphocytes/100 leukoc yteson 11-30-2021 Lymphocytes/100 WBC (Bld) 24.0 % 19-41 [facility] Work Phone: Blood monocytes/100 leukocyt eson 11-30-2021 Monocytes/100 WBC (Bld) 4.5 % 0-10 [facility] Work Phone: Blood platelet mean volumeon 11-30-2021 Platelet mean volume (Bld) [Entitic vol] 10.5 fL 6.2-12.0 [facility] Work Phone: Determination of erythrocyte mean corpuscular volume (MCV)on 11-30-2021 MCV (RBC) [Entitic vol] 90.9 fL 81-99 [facility] Work Phone: Hematocrit Auto (Bld) [Volum e fraction]on 11-30-2021 Hematocrit (Bld) [Volume fraction] 41.1 % 37-47 [facility] Work Phone: Laboratory - Chemistry and C hemistry - challengeon 11-30-2021 ALP [Catalytic activity/Vol] 77 U/L 45-117 [facility] Work Phone: ALT [Catalytic activity/Vol] 21 U/L 13-56 [facility] Work Phone: CO2 [Moles/Vol] 28.0 mmol/L 21.0-32.0 [facility] Work Phone: Globulin (S) [Mass/Vol] 3.6 g/dL 2.2-4.2 [facility] Work Phone: Urea nitrogen/Creatini ne [Mass ratio] 16.1 mg/mg 10-20 [facility] Work Phone: Laboratory - Hematology and Cell countson 11-30-2021 Erythrocyte distribution width (RBC) [Entitic vol] 44.4 fL 35.1-43.9 [facility] Work Phone: Erythrocyte distribution width (RBC) [Ratio] 13.3 % 11.6-14.6 [facility] Work Phone: Immature granulocytes/100 WBC (Bld) 0.200 % 0.0-0.9 [facility] Work Phone: Comment on above: IG% - Immature Granu locytes (promyelocytes, myelocytes and metamyelocytes) > 1% indicates that a LEFT SHIFT is Present. MCH (RBC) [Entitic mass] 29.2 pg 27.0-32.0 [facility] Work Phone: Nucleated RBC/100 WBC (Bld) [Ratio] 0 % 0-5 [facility] Work Phone: MCHC Auto (RBC) [Mass/Vol]on 11-30-2021 MCHC (RBC) [Mass/Vol] 32.1 g/dL 32-36 [facility] Work Phone: No Panel Informationon 11-30 Estimated GFR (MDRD) Amer 140 mL/min >60 [facility] Work Phone: Comment on above: GFR Calc Estimated GFR (MDRD) Non-Af Amer 116 mL/min >60 [facility] Work Phone: Comment on above: Non- GFR Calc Thyroid Stimulating Hormone (TSH) 1.67 uIU/mL 0.358-3.74 [facility] Work Phone: Platelets bldon 11-30-2021 Platelets (Bld) [#/Vol] 260 10*3/uL 150-450 [facility] Work Phone: Serum or plasma albumin tevin urement (mass/volume)on 11-30-2021 Albumin [Mass/Vol] 3.8 g/dL 3.2-5.0 [facility] Work Phone: Serum or plasma albumin/glob ulin mass ratioon 11-30-2021 Albumin/Globulin [Mass ratio] 1.1 {ratio} 0.9-2.4 [facility] Work Phone: Serum or plasma calcium tevin urement (mass/volume)on 11-30-2021 Calcium [Mass/Vol] 8.9 mg/dL 8.5-10.1 [facility] Work Phone: Serum or plasma cholesterol in HDL measurement (mass/volume)on 11-30-2021 Cholesterol in HDL [Mass/Vol] 66 mg/dL >40 [facility] Work Phone: Comment on above: The drugs N-Acetylcy steine and Metamizole may falsely depress this assay. Reference Range HDL <40 mg/dL Low HDL Cholesterol HDL >or= 60 mg/dL High HDL Cholesterol Serum or plasma cholesterol in VLDL measurement (mass/volume)on 11-30-2021 Cholesterol in VLDL [Mass/Vol] 7 mg/dL 5-40 [facility] Work Phone: Serum or plasma creatinine m easurement (mass/volume)on 11-30-2021 Creatinine [Mass/Vol] 0.62 mg/dL 0.55-1.02 [facility] Work Phone: Comment on above: The validity of the calculated GFR & GFRAA in patients over 70 years has not been determined. Clinical correlation is essential. Serum or plasma low density lipoprotein (LDL) cholesterol measurement (mass/volume)on 11-30-2021 Cholesterol in LDL [Mass/Vol] 112 mg/dL 0-130 [facility] Work Phone: Serum or plasma urea nitroge n measurement (mass/volume)on 11-30-2021 Urea nitrogen [Mass/Vol] 10 mg/dL 7-18 [facility] Work Phone: Thin prep Papanicolaou smear with manual screeningon 11-30-2021 Thin prep Papanicolaou smear with manual screening 13 U/L 15-37 [facility] Work Phone: Thin prep Papanicolaou smear with manual screening 6 5-15 [facility] Work Phone: Whole blood hemoglobin A1c/t otal hemoglobin ratio (mass fraction)on 11-30-2021 HbA1c (Bld) [Mass fraction] 5.4 % 3.8-5.6 [facility] Work Phone: Comment on above: Normal < 5.7 % Predi abetic 5.7 - 6.4 % Diabetic >or= 6.5 % Please note range changes. CNOVon 11-08-2020 CNOV Office Visit (PEDSWS ) -------- SHE AGUILAR ([id number]) 1985 F Date Time Provider Department 11/08/20 10:00 AM NURSE LUCILA TIAN PEDSWS During your visit today, we recorded the following information about you: Referring Provider: SELF [200] Allergies As of Date: 11/08/2020 (No Known Allergies) Date Reviewed: 11/07/2015 Reviewed by: Chio Ghotra Ma - Fully Assessed Primary Visit Diagnosis:Encounter for immunization [Z23] Order(s):INFLUENZA VACCINE QUADRIVALENT 6 MO - 64 YRS IM [[id number]] Order #: [id number] Prescriptions as of 11/08/2020 - Phentermine HCl (ADIPEX-P) 37.5 mg capsule Take 1 capsule by mouth once daily. - Norgestimate-Ethinyl Estradiol (TRI-SPRINTEC) 0.18/0.215/0.25 mg-35 mcg (28) tab Take by mouth. - lisdexamfetamine (VYVANSE) 40 mg capsule Take 40 mg by mouth once daily. - Norethindrone, Contraceptive, (ORTHO MICRONOR) 0.35 mg tablet Take 1 tablet by mouth once daily. - VIT/IRON FUMARATE/FA ( ORAL) Take by mouth. Problem List As Of Date 11/08/2020 Noted Resolved Supervision of normal first [Z34.00] 12/11/2014 04/25/2015 Tobacco use during in third trimester*01/14/2015 04/25/2015 Morbid obesity due to excess calories (HCC) [E6*11/07/2015 Pap smear abnormality of cervix with LGSIL [R87*11/07/2015 Encounter Status:Closed by DONOVAN FERRARA MA on 11/08/20 Normal [facility] Office Visit: OB Routineon 1 03-23-2016 crown rump length by ultrasound 28.8 mm Invalid Interpretation Code [facility] Documentation of current medications (procedure) Done Invalid Interpretation Code [facility] estimated date of confinement by sonogram 08/18/[address] [facility] cardiac activity by sonography Yes Invalid Interpretation Code [facility] number by ultrasound [address] [facility] OB ultrasound, gestational sac Yes Invalid Interpretation Code [facility] Tobacco use CPHS Never smoker Invalid Interpretation Code [facility] Urine, glucose presence N Invalid Interpretation Code [facility] Urine, protein N Invalid Interpretation Code [facility] Microbiology: Culture, Urine on 01-10-2017 CUUR . Invalid Interpretation Code [facility] Microbiology: (P) Culture, U rineon 01-09-2017 CUUR . Invalid Interpretation Code [facility] Lab Report: CT/NG [facility] BY PCR on 01-07-2017 Chlamydia trachomatis DNA [Presence] in Urine by Probe and target amplification method Negative Invalid Interpretation Code Negative [facility] Neisseria gonorrhoeae presence Negative Invalid Interpretation Code Negative [facility] Lab Report: Urinalysis, Rout ine (Dipstick)on 01-07-2017 Bilirubin Ql (U) Negative Invalid Interpretation Code Negative [facility] NITRITE UR Negative Invalid Interpretation Code Negative [facility] OCCULT BLOOD-UR 10 [facility] specific gravity, urine 1.015 Invalid Interpretation Code 1.002-1.030 [facility] Urine, clarity Sl. Cloudy Invalid Interpretation Code Clear [facility] Urine, color Yellow Invalid Interpretation Code Yellow [facility] Urine, glucose presence Normal mg/dl Invalid Interpretation Code Normal [facility] Urine, ketones presence [address] [facility] Urine, leukocyte esterase presence [address] [facility] Urine, pH 7.0 [pH] Invalid Interpretation Code 5.0 - 8.0 [facility] Urine, protein Negative Invalid Interpretation Code Negative [facility] UROBILI Normal mg/dl Invalid Interpretation Code Normal [facility] Office Visit: OB Initialon 1 03-09-2016 Documentation of current medications (procedure) Done Invalid Interpretation Code [facility] Fall risk assessment No Invalid Interpretation Code [facility] cardiac activity by sonography Yes Invalid Interpretation Code [facility] number by ultrasound [address] [facility] gestational age by ultrasound 8 W Invalid Interpretation Code [facility] OB ultrasound, gestational sac Yes Invalid Interpretation Code [facility] Tobacco smoking status NHIS Never Invalid Interpretation Code [facility] Tobacco use CPHS Never smoker Invalid Interpretation Code [facility] Lab Report: hCG Titer Quant. , Serumon 12-20-2016 HCG.beta subunit Qn 2279 m[IU]/mL High <9 non-preg [facility] Lab Report: PAP I-G HPV Hi R iskon 11-18-2016 HPV HC,HGH RISK Positive High Negative Blooming[facility] on [facility] Lab Report: DHEA Sulfateon 0 11-14-2016 DHEA SULF 4020 3528 ng/mL Invalid Interpretation Code Units converted. See lab report for original value. [facility] Lab Report: Prolactinon Prolactin 5.3 ng/mL Invalid Interpretation Code [facility] Lab Report: Thyroid Stim Hor patrick (TSH)on 11-12-2016 Thyroid stimulating hormone (TSH) 2.09 u[iU]/mL Invalid Interpretation Code 0.358-3.74 [facility] Office Visit: Infertilityon 11-12-2016 Documentation of current medications (procedure) Done Invalid Interpretation Code [facility] Fall risk assessment No Invalid Interpretation Code [facility] Hemoglobin presence in stool not done Invalid Interpretation Code [facility] Tobacco smoking status NHIS Never Invalid Interpretation Code [facility] Tobacco use CPHS Never smoker Invalid Interpretation Code [facility] Office Visit: OB Initialon 0 11-05-2016 General categories [Interpretation] of Cervical or vaginal smear or scraping by Cyto stain Normal Invalid Interpretation Code [facility] Office Visit: Infertilityon 08-06-2015 General categories [Interpretation] of Cervical or vaginal smear or scraping by Cyto stain LGSIL Invalid Interpretation Code [facility] Vital Signs Date Time Vital Sign Value Performing Clinician Faci lity 08-19-2021 07:43-0400 Body temperature 98 [degF] Dr. Jake Hurst Work Phone: [facility] Work Phone: 08-19-2021 07:43-0400 Diastolic blood pressure 78 mm[Hg] Dr. Jake Hurst Work Phone: [facility] Work Phone: 08-19-2021 07:43-0400 Heart rate 96 /min Dr. Jake Hurst Work Phone: [facility] Work Phone: 08-19-2021 07:43-0400 Respiratory rate 14 /min Dr. Jake Hurst Work Phone: [facility] Work Phone: 08-19-2021 07:43-0400 SaO2% (BldA) [Mass fraction] 97 % Dr. Jake Hurst Work Phone: [facility] Work Phone: 08-19-2021 07:43-0400 Systolic blood pressure 132 mm[Hg] Dr. Jake Hurst Work Phone: [facility] Work Phone: 01-21-2017 08:38-0500 BMI (Body Mass Index) 37.4 kg/m2 Lynn Paulino MD [facility] 01-21-2017 08:38-0500 BP Diastolic 70 mm[Hg] Lynn Paulino MD [facility] 01-21-2017 08:38-0500 BP Systolic 111 mm[Hg] Lynn Paulino MD [facility] 01-21-2017 08:38-0500 Weight 111.59 kg Lynn Paulino MD [facility] 01-07-2017 12:50-0400 BMI (Body Mass Index) 37.7 kg/m2 Lynn Paulino MD [facility] 01-07-2017 12:50-0400 Body Temperature 97.9 [degF] Lynn Paulino MD [facility] 01-07-2017 12:50-0400 BP Diastolic 79 mm[Hg] Lynn Paulino MD [facility] 01-07-2017 12:50-0400 BP Systolic 123 mm[Hg] Lynn Paulino MD [facility] 01-07-2017 12:50-0400 Height 172.72 cm Lynn Paulino MD [facility] 01-07-2017 12:50-0400 Pulse (Heart Rate) 96 /min Lynn Paulino MD [facility] 01-07-2017 12:50-0400 Weight 112.49 kg Lynn Paulino MD [facility] 11-12-2016 09:12-0400 BMI (Body Mass Index) 38.68 kg/m2 Lynn Paulino MD [facility] 11-12-2016 09:12-0400 Body Temperature 98.2 [degF] Lynn Paulino MD [facility] 11-12-2016 09:12-0400 BP Diastolic 76 mm[Hg] Lynn Paulino MD [facility] 11-12-2016 09:12-0400 BP Systolic 136 mm[Hg] Lynn Paulino MD [facility] 11-12-2016 09:12-0400 Height 172.72 cm Lynn Paulino MD [facility] 11-12-2016 09:12 Respiratory Rate 16 /min Lynn Paulino MD [facility] 11-12-2016 09:120400 Weight 115.4 kg Lynn Paulino MD [facility] 11-12-2016 09: Weight 115.39 kg Lynn Paulino MD [facility] Encounters Encounter Date Encounter Type Care Provider Facility Start: 01-11-2024 End: 01-11-2024 ambulatory Lynn Paulino Facility:[facility] Start: 12-13-2023 End: 12-13-2023 ambulatory Lynn Paulino Facility:[facility] Start: 11-15-2023 End: 11-15-2023 ambulatory Lynn Paulino Facility:[facility] Start: 10-31-2023 ambulatory Fatimah Hernandez NP Facili ty:[facility] Start: 10-28-2023 ambulatory Shalom Hurst Faci lity:[facility] Start: 10-28-2023 End: 10-28-2023 ambulatory Shalom Hurst Facility:[facility] Start: 10-17-2023 End: 10-17-2023 ambulatory Shalom Hurst Facility:[facility] Start: 08-24-2023 End: 08-24-2023 ambulatory Shalom Hurst Facility:[facility] Start: 07-22-2023 End: 07-22-2023 ambulatory Wenceslao Acosta Facility:[facility] Start: 07-22-2023 End: 07-22-2023 ambulatory Lynnmarlon Paulino Facility:[facility] Start: 07-19-2023 End: 07-20-2023 ambulatory Lynn Paulino Facility:[facility] Start: 11-30-2021 End: 11-30-[address] Jake Hurst Work Phone: [facility] Work Phone: Start: 11-30-2021 End: 11-30-[address] Jake Hurst Work Phone: [facility] Start: 08-19-2021 End: 08-19-[address] Jake Hurst Work Phone: [facility] Start: 02-07-2017 End: 02-07-2017 Ambulatory ELMIRA SALDANA [facility] Procedures Date Procedure Procedure Detail Performing Clinician Start: 01-21-2017 End: 01-21-2017 Routine OB Visit (Global) Lynn perry MD Work Phone: Start: 01-07-2017 End: 01-09-2017 *CUUID - Urine ANAHI Culture - Identificatn Lynn Paulino MD Work Phone: Start: 01-07-2017 End: 01-09-2017 *GC/Chlamydia Lynn Paulino MD Work Phone: Start: 01-07-2017 End: 01-09-2017 *UA - Urinalysis w/o Micro Lynn san MD Work Phone: Start: 01-07-2017 End: 01-10-2017 Routine OB Visit (Global) Lynn perry MD Work Phone: Start: 12-17-2016 End: 12-17-2016 Choriogonadotropin.beta subunit [Units/volume] in Serum or Plasma Lynn Paulino MD Work Phone: Start: 11-12-2016 End: 11-15-2016 Dehydroepiandrosterone sulfate (DHEA-S) [Mass/volume] in Serum or Plasma Lynn Paulino MD Work Phone: Start: 11-12-2016 End: 11-12-2016 Prolactin [Mass/volume] in Serum or Plasma Lynn Paulino MD Work Phone: Start: 11-12-2016 End: 11-15-2016 Testosterone Free [Mass/volume] in Serum or Plasma Lynn Paulino MD Work Phone: Start: 11-12-2016 End: 11-12-2016 Thyrotropin [Units/volume] in Serum or Plasma Lynn Paulino MD Work Phone: Plan of Treatment Date Care Activity Detail Author Start: 02-17-2017 End: 02-17-[address] [facility] Start: 01-21-2017 End: 01-21-2017 Appointment Appointment [facility] Start: 01-07-2017 End: 01-10-2017 *CBC with Differential *CBC with Differential [facility] Start: 01-07-2017 End: 01-09-2017 *CUUID - Urine ANAHI Culture - Identificatn *CUUID - Urine ANAHI Culture - Identificatn [facility] Start: 01-07-2017 End: 01-09-2017 *GC/Chlamydia *GC/Chlamydia [facility] Start: 01-07-2017 End: 01-10-2017 *HEBSAG - Hep B Surface Antigen 6510 *HEBSAG - Hep B Surface Antigen 6510 [facility] Start: 01-07-2017 End: 01-10-2017 *HIV antibody *HIV antibody [facility] Start: 01-07-2017 End: 01-10-2017 *TS Type and Screen *TS Type and Screen [facility] Start: 01-07-2017 End: 01-09-2017 *UA - Urinalysis w/o Micro *UA - Urinalysis w/o Micro [facility] Start: 01-07-2017 End: 01-10-2017 Reagin antibody presence *RPR [facility] Start: 01-07-2017 End: 01-10-2017 Rubella virus Ab [Units/volume] in Serum *Rubella Screen [facility] Start: 12-17-2016 End: 12-17-2016 HCG.beta subunit Qn *HCGT - HCG Titer Quant., Serum [facility] Start: 11-12-2016 End: 11-15-2016 Dehydroepiandrosterone sulfate (DHEA-S) *DHEA - DHEA-S (Dehydroepiandrostero ne Sullfate) [facility] Start: 11-12-2016 End: 11-12-2016 Prolactin *PROL Prolactin [facility] Start: 11-12-2016 End: 11-15-2016 Testosterone Free [Mass/volume] in Serum or Plasma *TESTOF Testosterone Free [facility] Start: 11-12-2016 End: 11-12-2016 Thyroid stimulating hormone (TSH) *TSH [facility] Immunizations Immunization Date Immunization Notes Care Provider Fa cili 09-10-2020 tetanus toxoid, reduced diphtheria toxoid, and acellular pertussis vaccine, adsorbed Dr. Jake Hurst Work Phone: [facility] Work Phone: 08-10-2020 Covid (Pfizer) Dr. David Hurst Work Phone: [facility] Work Phone: 06-08-2017 tetanus toxoid, reduced diphtheria toxoid, and acellular pertussis vaccine, adsorbed Dr. Jake Hurst Work Phone: [facility] Work Phone: 12-22-2016 influenza, seasonal, injectable Dr. Jake Hurst Work Phone: [facility] Work Phone: 12-05-[address] Jake Hurst Work Phone: [facility] Work Phone: Payers Date Payer Category Payer Unknown [id number] 2023 Self-pay [id number] 2023 Unknown [id number] Private Health Insurance [id number] Unknown [facility] [id number] 2.16.8 [id number] Unknown [id number] 2.16.8 [id number] Unknown [id number] 2.16.8 [id number] Unknown [id number] 2.16.8 [id number] Unknown [id number] 2.16.8 [id number] Unknown [id number] 2.16.8 [id number] Unknown [id number] 2.16.8 [id number] Unknown [id number] 2.16.8 [id number] Unknown [id number] 2.16.8 [id number] Unknown [id number] 2.16.8 [id number] Unknown [id number] 2.16.8 [id number] Unknown [id number] 2.16.8 [id number] Social History Date Type Detail Facility Start: 08-19-2021 Tobacco smoking stat [facility] Unknown if ever smoked [facility] Work Phone: Start: 08-19-2017 None [facility] Work Phone: Start: 1985 Sex Assigned At Female [facility] Work Phone: Evaluation note Note Date & Type Note Facility Evaluation note Diagnosis Onset Date Bug bite without infection a cute [facility] Work Phone: Summary Purpose Family History No Family History Records FoundNo Family History Records FoundNo Family History Records Found Advance Directives No Advanced Directives Records Found Advance Directive Response Recorded Date/ Time Living Will No November 29, 2020 2:55am Power of Form Building Supervisor No November 2:55am Chief Complaint and Reason for Visit Chief Complaint R LEG BUG BITE Reason for Visit Bug bite without inf ection Additional Source Comments INFORMATION SOURCE (unrecogn ized section and content) DATE CREATED AUTHOR 08/30/2017 [facility] DATE CREATED AUTHOR AUTHOR'S ORGANIZ ATION 04/26/2021 [facility] DATE CREATED AUTHOR AUTHOR'S ORGANIZ ATION 04/02/2024 [facility] Goals (unrecognized section and content) Goals may be documented in a n alternate section FOR RECORDS PERTAINING TO PATIENTS WHO ARE OR HAVE BEEN ENROLLED IN A CHEMICAL DEPENDENCY/SUBSTANCEABUSE PROGRAM, SOME INFORMATION MAY BE OMITTED. This clinical summary was aggregated from multiple sources. Caution should be exercised in using it in the provision of clinical care. This summary normalizes information from multiple sources, and as a consequence, information in this document may materially change the coding, format and clinical context of patient data. In addition, data may be omitted in some cases. CLINICAL DECISIONS SHOULD BE BASED ON THE PRIMARY CLINICAL RECORDS. [facility] [employer] [facility]. provides no warranty or guarantee of the accuracy or completeness of information in this document.
[2024-10-18 10:28] LABS: Hematocrit 39.3 % (37-47); Hemoglobin 12.8 g/dL (12.0-15.0); Immature Granulocytes Count 0.020 X10^3/uL (0.0-0.0); Mean Corp Hgb Conc 32.6 g/dL (32-36); Mean Corpuscular Volume 90.1 fL (81-99); Mean Platelet Vol. 10.5 fl (6.2-12.0); NRBC Flagged by Analyzer 0 % (0-5); Platelet Count 241 K/mm3 (150-450); RBC Distribution Width CV 13.0 % (11.6-14.6); RBC Distribution Width SD 43.2 fl (35.1-43.9); Red Blood Count 4.36 M/mm3 (4.2-5.4); White Blood Count 3.9 K/mm3 (4.4-11.0)
[2024-10-18 11:36] LABS: AST(SGOT) 14 U/L (<=31); Alanine Aminotransfer ALT/SGPT 15 U/L (<=34); Albumin, Serum 4.3 g/dL (3.5-5.0); Alkaline Phosphatase 60 U/L (35-104); Anion Gap 12 (5-15); BUN 10 mg/dL (4-19); BUN/Creat Ratio 16.0 RATIO (10-20); Calcium,Total 9.2 mg/dL (7.6-11.0); Carbon Dioxide 23.0 mmol/L (21.0-32.0); Chloride 104 mmol/L (98-108); Cholesterol 219 mg/dL (<=200); Globulin 2.7 g/dL (2.2-4.2); Glucose 86 mg/dL (70-99); Low Density Lipoprotein Calc. 142 mg/dL; Potassium 4.3 mmol/L (3.3-5.1); Triglycerides 60 mg/dL; Very Low Density Lipoprotein 12 mg/dL (5-40); Vitamin D,25 Hydroxy 22.1 ng/mL (30-100); cholesterol:hdl ratio screen 3.37
== END | disposition home or self-care (01) ==
LOC: MFPLAB 08:30
PROVIDERS: PCP Family Medicine; Visit Provider Family Medicine
DX: Z13.220 Encounter for screening for lipoid disorders (principal); Z13.1 Encounter for screening for diabetes mellitus; R53.83 Other fatigue
CPT/HCPCS: 36415; 80053; 80061; 82306; 84443; 85025